=== PATIENT | male | born 1930 | race Two or more races ===

== ENCOUNTER 2019-02-14 12:15 | Emergency (ER) | payer MEDICARE, MEDICAID ==
[~2019-02-14] VITALS: Ht 167.6 cm; Wt 77.1 kg
[2019-02-14 12:15] VITALS: BP 153/70
--- NOTE | 2019-02-14 12:32 | Emergency Room Report ---
History of Present Illness General Chief Complaint: Earache Source: Patient, EMS Present Illness HPI Patient is an 88-year-old male presents after approximately 5 days of increased left-sided earache. He reports having sharp pain as well as decreased hearing to the left ear. He denies any discharge. Not been vomiting. Denies any other locations of pain. Reports having decreased hearing. Patient reports having put something into his left ear. Denies any fever. Reports having moderate pain to the area. Allergies: Coded Allergies: No Known Allergies (Unverified , 02/14/19) Patient History Past Medical History: see triage record Reviewed Nursing Documentation: PMH: Agreed; PSxH: Agreed Review of Systems All Other Systems: negative except mentioned in HPI Physical Exam Vital Signs Date Time Temp Pulse Resp B/P (MAP) Pulse Ox O2 Delivery O2 Flow Rate FiO2 02/14/19 12:14 98.8 78 18 153/70 (97) 93 Room Air Sp02 EP Interpretation: reviewed, normal General Appearance: normal inspection, well appearing, no apparent distress, alert, GCS 15 Head: atraumatic ENT: normal voice, other - decreased hearing, left ear canal swelling and tragal tenderness Neck: normal inspection, full range of motion, supple, no bony tend Respiratory: normal inspection, lungs clear, normal breath sounds, no respiratory distress, no retraction, no wheezing Cardiovascular #1: regular rate, rhythm, no edema, edema - 2+edema Gastrointestinal: normal inspection, normal bowel sounds, non tender, soft, no guarding, no hernia Genitourinary: no CVA tenderness Musculoskeletal: normal inspection, back normal, normal range of motion Neurologic: alert, motor strength/tone normal, sampler ovens III-XII nml as tested, oriented x3, responsive, speech normal, normal inspection Psychiatric: normal inspection, judgement/insight normal, mood/affect normal Medical Decision Making Diagnostic Impression: Primary Impression: Otitis externa Additional Impression: Perforated tympanic membrane ER Course Patient presented for increased left-sided ear pain. Differential diagnosis includes not limited to perforated eardrum, otitis externa, mastoiditis among others. Patient was noted to have some left-sided ear canal swelling. The right ear appears to be normal. CT imaging was ordered. 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 See radiology report for full details. He was given prescription for oral antibiotics. Patient was discussed with Dr. Ambrosio. He will be transferred back to his SNF. Patient is to follow-up with ENT as an outpatient Last Vital Signs Date Time Temp Pulse Resp B/P (MAP) Pulse Ox O2 Delivery O2 Flow Rate FiO2 02/14/19 12:15 98.8 78 18 153/70 93 Room Air Status: improved Disposition: HOME, SELF-CARE Condition: Stable Scripts Amoxicillin* (AMOXIL*) 500 Mg Capsule 500 MG ORAL THREE TIMES A DAY, #21 CAP Prov: Vini Walton MD 02/14/19 Vini Walton MD Feb 14, 2019 12:32
[2019-02-14] MEDS ORDERED: ZOFRAN4 M3 ORAL (12:34)
[2019-02-14] MEDS ORDERED: DOCUSIL100 M1 ORAL (12:34)
[2019-02-14] MEDS ORDERED: ACETAMINOPHEN325 M1 ORAL (12:34)
[2019-02-14] MEDS ORDERED: MILK OF MA2400 MG/10 ORAL (12:34)
[2019-02-14] MEDS ORDERED: MELATONIN3 M1 ORAL (12:34)
[2019-02-14] MEDS ORDERED: OXYCODONE HCL10 MG ORAL (12:34)
[2019-02-14] MEDS ORDERED: GABAPENTIN300 MG ORAL (12:34)
[2019-02-14] MEDS ORDERED: AMOXICILLIN500 MG ORAL (13:41)
--- NOTE | 2019-02-14 13:58 | Diagnostic Imaging Report ---
Indications: Left ear and head pain Technique: Spiral acquisitions obtained through the brain. Angled axial and coronal 5 x 5 mm slices were reconstructed. Total dose length product 1332 mGycm. CTDI vol(s) 62 mGy. Dose reduction achieved using automated exposure control Comparison: None. Findings: There is age-related enlargement of the ventricles and extra axial CSF spaces. Cerebellar volume loss appears somewhat asymmetric on the left There is low-attenuation in the anterior limb of the right internal capsule as well as the anterior right lentiform nucleus. There is a smaller focus of low-attenuation in the anterior limb of the left internal capsule. There is periventricular deep white matter low-attenuation. The calvarium is intact. There is some chronic sclerosis of the right mastoids. No acute mastoid effusion demonstrated. The sinuses are clear. The orbits demonstrate evidence of prior bilateral cataract surgery. 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
[2019-02-14 17:00] VITALS: BP 160/80
== END 2019-02-14 17:02 | disposition home or self-care (01) ==
LOC: EDBD 12:15 → EMR 14:00
DX: H60.92 Unspecified otitis externa, left ear (principal); H72.92 Unspecified perforation of tympanic membrane, left ear
CPT/HCPCS: 70450; 99284

== ENCOUNTER 2020-02-22 10:53 | Inpatient (IN) | payer MEDICARE, OTHER ==
[~2020-02-22] VITALS: Ht 177.8 cm; Wt 80.7 kg
[2020-02-22 10:53] VITALS: BP 143/90
[~2020-02-22 10:53] MED LIST: ACETAMINOPHEN325 M1 ORAL; AMOXICILLIN500 MG ORAL; DOCUSIL100 M1 ORAL; GABAPENTIN300 MG ORAL; MELATONIN3 M1 ORAL; MILK OF MA2400 MG/10 ORAL; OXYCODONE HCL10 MG ORAL; ZOFRAN4 M3 ORAL
--- NOTE | 2020-02-22 10:53 | NUR ---
ED Nurse Note: Pt BIBA RA11 from [facility] c/o SOB x couple mins ago. Per EMS, pt was dessatingn at 86% RA, placed on 15L NRB, O2 improved to 96%. Pt was tested positive last 02/11/20. Pt is warm to touch, tachypneic 40s and tachycardic 110s upon arrival. AAOx4, verbally responsive. Pt is restless. Noted with shallow breathing. Isolation precaution is in place. Pt placed on night monitor.
[2020-02-22] MEDS ORDERED: Azithromycin 500 MG in NS 275 ML IVPB ONE (11:15)
[2020-02-22] MEDS ORDERED: dexAMETHasone 10mg/ml Inj IV ONE (11:15)
[2020-02-22] MEDS ORDERED: cefTRIAXone 1 GM in NS 55 ML IV ONE (11:15)
--- NOTE | 2020-02-22 11:36 | NUR ---
ED Nurse Note: Xray at bedside.
[2020-02-22 12:00] VITALS: BP 135/78
[2020-02-22 12:06] LABS: BASOPHILS % (AUTO) 0.4 % (0.0-2.0); EOSINOPHILS % (AUTO) 0.1 % (0.0-3.0); HEMOGLOBIN 13.9 G/DL (14.2-18.0); LYMPHOCYTES % (AUTO) 9.9 % (20.0-45.0); MEAN CORPUSCULAR VOLUME 77 FL (80-99); MONOCYTES % (AUTO) 14.1 % (1.0-10.0); NEUTROPHILS % (AUTO) 75.5 % (45.0-75.0); PLATELET COUNT 356 K/UL (150-450); RED BLOOD COUNT 5.29 M/UL (4.70-6.10); RED CELL DISTRIBUTION WIDTH 13.8 % (11.6-14.8); WHITE BLOOD COUNT 5.8 K/UL (4.8-10.8)
[2020-02-22 12:23] LABS: ANION GAP 11 mmol/L (5-15); BLOOD UREA NITROGEN 31 mg/dL (7-18); CALCIUM 8.5 MG/DL (8.5-10.1); CARBON DIOXIDE 26 MMOL/L (21-32); CHLORIDE 103 MMOL/L (98-107); CREATININE 1.6 MG/DL (0.55-1.30); POTASSIUM 3.6 MMOL/L (3.5-5.1); SODIUM 140 MMOL/L (136-145)
[2020-02-22 12:26] LABS: INR 1.3 (0.9-1.1)
[2020-02-22 12:38] LABS: ALANINE AMINOTRANSFERASE 48 U/L (12-78); ALBUMIN 2.4 G/DL (3.4-5.0); ALBUMIN/GLOBULIN RATIO 0.4 (1.0-2.7); ALKALINE PHOSPHATASE 70 U/L (46-116); ASPARTATE AMINO TRANSFERASE 55 U/L (15-37); BILIRUBIN,TOTAL 0.8 MG/DL (0.2-1.0); CREATINE KINASE 388 U/L (26-308); FERRITIN 452 NG/ML (8-388); LACTATE DEHYDROGENASE 444 U/L (81-234); PHOSPHORUS 1.9 MG/DL (2.5-4.9)
--- NOTE | 2020-02-22 13:07 | Diagnostic Imaging Report ---
Indication: Cough Technique: One view of the chest Comparison: none Findings: Bilateral mid and lower lung infiltrates versus edema are demonstrated. The heart is enlarged. Impression: Cardiomegaly. Bilateral infiltrates versus edema
--- NOTE | 2020-02-22 13:27 | Emergency Room Report ---
History of Present Illness General Chief Complaint: Dyspnea/Respdistress Source: Patient Present Illness HPI 89-year-old male brought in by ambulance with hypoxia. Patient was hypoxic on EMS arrival therefore he was placed on 15 L facemask with correction of hypoxia to SPO2 95%. History is limited secondary to patient's clinical status. He is full code The patient's symptoms were gradual onset, severity was moderate, duration since several days Quality: Generally weak, short of breath Past medical history: Denies Past surgical history: Denies Smoking: Denies Alcohol use: Denies Drug use: Denies Review of systems: CONST: Positive fevers or chills, No night sweats PULMONARY: N positive o productive cough, positive shortness of breath CARDIAC: No chest pain, No palpitations GI: No vomiting, No diarrhea , No melena_or_BRBPR : No dysuria, No hematuria, No discharge NEURO: No new_focal_weakness_or_numbness, No confusion, No vision changes 14 point Review of Systems is otherwise negative except per HPI Physical Exam: GENERAL: Awake_alert_ nontoxic, no acute distress Spo2 70% on RA -abnormal. Increased work of breathing. Febrile. Chronically ill-appearing EYES: Extraocular muscles are intact. Conjunctivae clear. Lids without swelling ENT: External nose and ear normal_in_appearance. Oropharynx clear. Head_atraumatic, dry_oral_mucosa NECK: No JVD. No meningismus. No thyromegaly. Supple. Trachea midline RESP: Increased respiratory effort. Coarse breath sounds bilaterally. Subcostal retractions. CARDIAC: Tachycardic. And regular rhytm. No_significant pedal edema. ABDOMEN: Soft. Nondistended. Nontender_No_rebound_or_guarding. MSK: Normal muscle tone, without rigidity. Extremities without asymmetric deformity or swelling. SKIN: Warm and dry. No visible cyanosis or pallor NEUROLOGIC: Alert, oriented x 2. Motor_and_sensation_grossly_intact. No truncal ataxia. Gait_normal Psych: Normal mood and affect, normal judgment and insight - COORDINATION OF CARE Case was discussed with: Patient Any labs and imaging that were ordered were interpreted as part of the medical decision making: Medical Decision Making/Plan: Differential includes COVID 19, pneumonia, bronchitis, CHF, pulmonary edema, pulmonary embolism, pleural effusion among others. Patient is febrile, tachycardic, and hypoxic. He was found to be Covid positive. He was placed on 15 L facemask with correction of hypoxia. ABG is pending. Symptoms are not likely to be pulmonary embolism, patient no significant PE risk factors, and has more likely alternate cause of symptoms. CXR shows multifocal pneumonia. Seems to be consistent with COVID pneumonia, rather than CHF. Labs show elevated lactic acid, elevated LDH, CRP, and ferritin. No significant leukocytosis or bandemia Presentation not consistent with ischemia / ACS. EKG shows sinus tachycardia without acute ischemia. Based on the patients PSI/PORT score, has high enough mortality risk that inpatient admission for IV antibiotics and clinical observation is most appropriate. Patient given Ceftriaxone / Azithromycin. Decadron given. I spoke with Dr. Lam, and reviewed the patients presentation, workup, results, and treatment. They will admit the patient for further care and evaluation, and assume care of the patient at this time. - CRITICAL CARE TIME - I spent 60minutes of critical care time. This time excludes any separately billable procedures. Organ systems at risk include: Pulmonary / respiratory Treatments/Evaluations: Emergent and rapid respiratory assessment and management with continuous monitoring. Advanced airway equipment at the ready, while the patient's respiratory symptoms were stabilized. Given the patients presentation with pneumonia with hypoxic respiratory failure, there existed the potential for imminent deterioration in the patient's condition due to respiratory compromise. Organ systems at risk for failure without immediate intervention include pulmonary / respiratory. This time was spent reviewing the patients records, reviewing vital signs, reassessing the patients clinical status, discussing the case and care with staff and consultants, and performing high-complexity medical decision making. I considered the possibility of Bipap vs intubation , but at this time the patient is protecting their airway and maintaining their saturation on supplemental oxygen so will defer intubation at this time, although they will be closely monitored for any further deterioration. 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 Rhythm: Sinus tachycardia Rate: 108 bpm QTc: 511 Morphology: No_significant_ST_elevations_or_depressions, No STEMI Impression: Sinus tachycardia, nonspecific ST changes Chest X-Ray Diagnostic Results Chest X-Ray Diagnostic Results : LINDA Virgen Chest X-Ray: Views: [ 1 ] view(s) Indication: Shortness of breath Findings: Normal heart size. Mediastinum normal. Bilateral infiltrate. Impression: Bilateral infiltrate The X-ray(s) were independently viewed and interpreted contemporaneously Electronically signed by Francia redman DO Reevaluation Time: 13:27 Last Vital Signs Date Time Temp Pulse Resp B/P (MAP) Pulse Ox O2 Delivery O2 Flow Rate FiO2 02/22/20 10:53 97.5 110 20 143/90 95 Non-Rebreather 15.0 Status: improved Disposition: ADMITTED INPATIENT Admit Decision Time: 13:00 Condition: Stable Referrals: Yumi Lam MD (PCP) Francia Singh D.O. Feb 22, 2020 13:27
--- NOTE | 2020-02-22 14:09 | NUR ---
ED Nurse Note: Pt unable to provide urine at this time.
[2020-02-22 14:18] VITALS: BP 131/75
[2020-02-22] MEDS ORDERED: Albuterol 90mcg Inhaler 8gm INH PRN (15:15)
[2020-02-22 16:15] VITALS: BP 134/78
[2020-02-22] MEDS ORDERED: Enoxaparin 30mg Inj SUBQ SCH (16:15)
[2020-02-22] MEDS ORDERED: Albuterol/Ipratropium 3ml neb HHN PRN (16:15)
--- NOTE | 2020-02-22 16:15 | History and Physical Report ---
DATE OF ADMISSION: 02/22/2020 CHIEF COMPLAINT: Shortness of breath. HISTORY OF PRESENT ILLNESS: This is an 89-year-old male from [facility]. I was notified earlier by the nursing staff about sending the patient to the ED for evaluation. The patient has been complaining of weakness and shortness of breath. 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 The patient has been identified as positive COVID-19 for the last several weeks. PAST MEDICAL HISTORY: 1. Organic brain syndrome. 2. Benign prostatic hypertrophy. 3. Gout. 4. Low back pain. 5. Osteoporosis. 6. Hypertensive cardiovascular disease. 7. Recurrent urinary tract infections. CURRENT MEDICATIONS: Tylenol as needed, Neurontin, melatonin, Zofran as needed, oxycodone, milk of magnesia, Pro-Stat liquid, multivitamins, tamsulosin, and vitamin D. ALLERGIES: No known drug allergies. FAMILY HISTORY: Unable to obtain due to his mental status. SOCIAL HISTORY: Unable to obtain due to his mental status. REVIEW OF SYSTEMS: Unable to obtain due to his mental status. PHYSICAL EXAMINATION: GENERAL: This is an elderly male, who is in no acute distress. VITAL SIGNS: Blood pressure 143/90, pulse 110, sinus tachycardia, and temperature 97.5. O2 saturation 95% on a non-rebreather mask at 15 liters/minute. HEENT: The head is normocephalic and atraumatic. Pupils are equal, round, and reactive to light. NECK: Supple. Trachea midline. There was no lymphadenopathy or thyromegaly. LUNGS: Bilateral rhonchi and wheezes. HEART: Tachycardia. S1 and S2. No rubs, murmurs, or gallops. ABDOMEN: Soft and nontender. Bowel sounds were active. EXTREMITIES: No clubbing, cyanosis, or edema. NEUROLOGICAL: He is alert, but confused. There were no gross focal findings. LABORATORY AND ANCILLARY DATA: CBC within normal limits. Chemistry - BUN 31, creatinine 1.6, phosphorus 1.9. LDH 444. CPK 388. Lactic acid 2.6. Albumin 2.4. ABG - pH 7.52, pCO2 28, pO2 70.9. Bicarbonate 22.4. Chest x-ray, bilateral infiltrates. CT scan of the head done on 02/15/2020 No acute disease. ASSESSMENT: 1. Bilateral COVID-19 pneumonia. 2. Volume depletion. 3. Malnutrition. PLAN: 1. Admit to step-down unit. 2. High-flow oxygen. 3. Pulmonary and ID consults. 4. Nutritional support. Yumi Lam M.D. DR: BISHOP JOB#: [id number] CC: LARA
[2020-02-22] MEDS ORDERED: PRO-STAT LIQUID30 ML ORAL (16:26)
[2020-02-22] MEDS ORDERED: [UNRECOGNIZED DRUG - OTHER] PO (16:26)
[2020-02-22] MEDS ORDERED: FLOMAX0.4 MG ORAL (16:26)
[2020-02-22] MEDS: Enoxaparin 40mg Inj SUBQ SCH (18:00)
[2020-02-22 18:24] VITALS: BP 144/77
[2020-02-22 19:30] VITALS: BP 134/73
--- NOTE | 2020-02-22 19:30 | NUR ---
ED Nurse Note: patient resting in bed with no acute distress. vitals stable to baseline. nrb 15L in place. patient tolerating well. discussed plan of care; aware of pending admission
--- NOTE | 2020-02-22 19:45 | NUR ---
ED Nurse Note: report given to nathan vega. patient to be admitted to [facility] under the care of loretta rosenbaum.
--- NOTE | 2020-02-22 20:10 | NUR ---
TRANSFER TO FLOOR: Patient transferred to [facility] as ordered, per loretta rosenbaum. Report given to nathan vega. patient stable for transport. transferred to unit via gurney with sheree and rn. belongings and admission packet sent with patient.
--- NOTE | 2020-02-22 20:45 | NUR ---
NURSE NOTES: Received patient from ER under the care of Dr. Mcmahan for the admitting dx of respiratory distress. Patient noted NKA and full code status. Patient on droplet/airborne isolation and fall risk precaution observed and maintained at all times. Patient is alert with periods of confusion. Able to speak and understand Maori and some Ecuadorean Tolerating O2 therapy (15lpm via Non-rebreather mask) well. No apparent distress or discomfort noted at this time. Will continue to monitor.
--- NOTE | 2020-02-22 21:05 | Pulmonology Progress Note ---
Subjective ROS Limited/Unobtainable: Yes Allergies: Coded Allergies: No Known Allergies (Unverified , 02/14/19) Objective Last 24 Hour Vital Signs Date Time Temp Pulse Resp B/P (MAP) Pulse Ox O2 Delivery O2 Flow Rate FiO2 02/22/20 18:24 98.6 85 16 144/77 100 Non-Rebreather 15.0 02/22/20 16:15 98.6 86 21 134/78 95 Non-Rebreather 15.0 02/22/20 14:18 98.6 82 27 131/75 99 Non-Rebreather 15.0 02/22/20 12:00 97.5 102 25 135/78 96 Non-Rebreather 15.0 02/22/20 10:53 97.5 110 41 143/90 95 Non-Rebreather 15.0 02/22/20 10:53 110 41 Non-Rebreather 15.0 02/22/20 10:48 97.5 110 20 143/90 (107) 95 Non-Rebreather 15.0 Microbiology Date/Time Source Procedure Growth Status 02/22/20 12:05 Rectum Received 02/22/20 12:05 Nasal Nares - Final Complete 02/22/20 12:05 Nasal Nares - Final Complete 02/22/20 11:25 Nasopharynx SARS-CoV-2 RdRp Gene Assay - Final Complete Laboratory Tests 02/22/20 11:25: White Blood Count 5.8, Red Blood Count 5.29, Hemoglobin 13.9L, Hematocrit 41.0L, Mean Corpuscular Volume 77L, Mean Corpuscular Hemoglobin 26.4L, Mean Corpuscular Hemoglobin Concent 34.0, Red Cell Distribution Width 13.8, Platelet Count 356, Mean Platelet Volume 6.9, Neutrophils (%) (Auto) 75.5H, Lymphocytes (%) (Auto) 9.9L, Monocytes (%) (Auto) 14.1H, Eosinophils (%) (Auto) 0.1, Basophils (%) (Auto) 0.4, Prothrombin Time 14.0H, Prothromb Time International Ratio 1.3H, Activated Partial Thromboplast Time 21L, D-Dimer 2.97H, Sodium Level 140, Potassium Level 3.6, Chloride Level 103, Carbon Dioxide Level 26, Anion Gap 11, Blood Urea Nitrogen 31H, Creatinine 1.6H, Estimat Glomerular Filtration Rate 40.9, Glucose Level 121H, Lactic Acid Level 2.60H, Calcium Level 8.5, Phosphorus Level 1.9L, Magnesium Level 2.2, Ferritin 452H, Total Bilirubin 0.8, Aspartate Amino Transf (AST/SGOT) 55H, Alanine Aminotransferase (ALT/SGPT) 48, Alkaline Phosphatase 70, Lactate Dehydrogenase 444H, Total Creatine Kinase 388H, Troponin I 0.014, C-Reactive Protein, Quantitative 17.1H, Pro-B-Type Natriuretic Peptide 538H, Total Protein 7.9, Albumin 2.4L, Globulin 5.5, Albumin/Globulin Ratio 0.4L , Lipase 88 02/22/20 11:54: Arterial Blood pH 7.521H, Arterial Blood Partial Pressure CO2 28.0L, Arterial Blood Partial Pressure O2 70.9L, Arterial Blood HCO3 22.4, Arterial Blood Oxygen Saturation 95.0, Arterial Blood Base Excess 0.8, Home Test Positive 02/22/20 13:03: Lactic Acid Level 1.80 02/22/20 17:33: Arterial Blood pH 7.512H, Arterial Blood Partial Pressure CO2 28.2L, Arterial Blood Partial Pressure O2 54.9L, Arterial Blood HCO3 22.1, Arterial Blood Oxygen Saturation 89.0*L, Arterial Blood Base Excess 0.3, Home Test Positive Current Medications Medications (Trade) Dose Ordered Sig/Gabi Route PRN Reason Start Time Stop Time Status Last Admin Dose Admin Acetaminophen (Tylenol) 650 mg Q4H PRN ORAL Mild Pain (Pain Scale 1-3) 02/22/20 16:15 03/23/20 16:14 Acetaminophen (Tylenol) 650 mg Q4H PRN ORAL Temp >100.5 02/22/20 16:15 03/23/20 16:14 Albuterol Sulfate (Proventil MDI) 2 puff Q4H PRN INH Shortness of Breath 02/22/20 15:15 05/22/20 15:14 Docusate Sodium (Colace) 100 mg EVERY 12 HOURS ORAL 02/22/20 21:00 03/23/20 20:59 Enoxaparin Sodium (Lovenox) 40 mg Q24H SUBQ 02/22/20 18:00 05/22/20 17:59 Ondansetron HCl (Zofran) 4 mg Q6H PRN IVP Nausea & Vomiting 02/22/20 16:15 03/23/20 16:14 Pantoprazole (Protonix) 40 mg DAILY ORAL 02/23/20 09:00 03/24/20 08:59 Sodium Chloride 1,000 ml @ 100 mls/hr Q10H IV 02/22/20 18:00 03/23/20 17:59 Assessment/Plan Assessment/Plan Pulmonary Consultation HPI: 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 Has been positive for Covid19 for several weeks Past Medical History: Organic brain syndrome Hypertensive cardiovascular disease Benign prostatic hypertrophy Gout Low back pain Osteoporosis Recurrent urinary tract infections Medications noted Allergies: No known drug allergies. FH: NA SH: NA ROS: NA Objective: Vital signs noted PE: GENERAL: This is an elderly male, who is in no acute distress. HEENT: The head is normocephalic and atraumatic. Pupils are equal, round, and reactive to light. NECK: Trachea midline. There was no lymphadenopathy or thyromegaly. LUNGS: Bilateral rhonchi and wheezes. HEART: Tachycardia. S1 and S2. No rubs, murmurs, or gallops. ABDOMEN: Soft and nontender. Bowel sounds were active. EXTREMITIES: No clubbing, cyanosis, or edema. NEUROLOGICAL: He is alert, but confused. There were no gross focal findings. Per report,deferred Covid 19 Laboratory noted Chest x-ray: bilateral infiltrates. 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
[2020-02-22] MEDS: Docusate 100mg cap ORAL SCH (21:37)
[2020-02-23] VITALS: BP 136/87
--- NOTE | 2020-02-23 | NUR ---
NURSE NOTES: Patient noted with periods of confusion. Patient able to verbalize his name and follow simple instructions. Tolerating O2 settings well. Will continue to monitor.
--- NOTE | 2020-02-23 03:00 | NUR ---
NURSE NOTES: New IV site started on patient. Noted to be patent and flushing well, no sign of infiltration noted. Will continue to monitor.
[2020-02-23 04:00] VITALS: BP 145/75
--- NOTE | 2020-02-23 06:00 | NUR ---
NURSE NOTES: Patient insisting on going to bathroom, reorientation provided but patients insists. Assisted to bedside comode. Pericare performed. Will continue to monitor.
[2020-02-23 06:05] LABS: CALCIUM 8.4 MG/DL (8.5-10.1); CREATININE 1.2 MG/DL (0.55-1.30); POTASSIUM 3.2 MMOL/L (3.5-5.1)
[2020-02-23 07:02] LABS: BASOPHILS % (AUTO) 0.2 % (0.0-2.0); HEMATOCRIT 40.8 % (42.0-52.0); HEMOGLOBIN 13.5 G/DL (14.2-18.0); LYMPHOCYTES % (AUTO) 8.6 % (20.0-45.0); MEAN CORPUSCULAR VOLUME 82 FL (80-99); MONOCYTES % (AUTO) 8.8 % (1.0-10.0); NEUTROPHILS % (AUTO) 82.3 % (45.0-75.0); PLATELET COUNT 335 K/UL (150-450); RED BLOOD COUNT 4.99 M/UL (4.70-6.10); RED CELL DISTRIBUTION WIDTH 13.2 % (11.6-14.8)
--- NOTE | 2020-02-23 07:10 | NUR ---
NURSE HAND-OFF REPORT: Important Events on Shift:Admitted to unit. Patient Status: Stable Diet: Regular Pending Orders: Pending Results/Labs: Pending MD notification: Latest Vital Signs: Temperature 97.2 , Pulse 83 , B/P 145 /75 , Respiratory Rate 22 , O2 SAT 93 , Non-Rebreather, O2 Flow Rate 15.0 . Vital Sign Comment: WNL EKG Rhythm: Sinus Rhythm Rhythm change?: N MD Notified?: - MD Response: Latest Myers Fall Score: 35 Fall Risk: Medium Risk Safety Measures: Call light , Bed Alarm Zone 1, Side Rails Side Rails x3, Bed position Low and Locked. Fall Precautions: Yellow Socks Yellow Gown Patient Fall Education Report given to PIERCE Damon.
--- NOTE | 2020-02-23 07:50 | NUR ---
NURSE NOTES:handoff received from PIERCE Valenzuela. Patient received awake and alert and resting in bed, patient is on non-rebreather at 15L saturating at 96% no acute signs of distress noted. Patient has right hand 20 G IV running 1/2NS@100ML, IV site is clean dry and intact. patient is on isolation for Covid,no skin issues noted. Patient assisted to the bedside commode and then placed back in bed. Patient is on patient monitor in SR, bed in the low and locked position with call light at bedside, fall precautions initiated. Will follow plan of care.
[2020-02-23 08:00] VITALS: BP 136/81
--- NOTE | 2020-02-23 08:22 | NUR ---
NURSE NOTES:Patient refused breakfast but requested a fruit plate. Called dietary to prepare and fruit plate for patient.
--- NOTE | 2020-02-23 08:58 | NUR ---
NURSE NOTES:Dr Nath notified regarding patient potassium level of 3.2 and patient complaining of left lower leg pain. Orders given for 30MEQ;s KCL IV and [place] 5/325 PO Q6H for pain.
[2020-02-23] MEDS: Docusate 100mg cap ORAL SCH ×2 (09:00→20:43)
--- NOTE | 2020-02-23 09:10 | NUR ---
NURSE NOTES:Assisted patient to bedside commode, patient urinated. Informed patient that I can assist him to use a urinal if he would like, patient states he needs to poop.
[2020-02-23] MEDS: dexAMETHasone 10mg/ml Inj IV SCH (09:45)
[2020-02-23] MEDS: HYDROcodone/Acetamin 5/325 tab ORAL PRN (11:29)
[2020-02-23 12:00] VITALS: BP 134/72
--- NOTE | 2020-02-23 12:53 | Pulmonology Progress Note ---
Subjective ROS Limited/Unobtainable: Yes Allergies: Coded Allergies: No Known Allergies (Unverified , 02/14/19) Objective Last 24 Hour Vital Signs Date Time Temp Pulse Resp B/P (MAP) Pulse Ox O2 Delivery O2 Flow Rate FiO2 02/23/20 11:55 15.0 100 02/23/20 11:53 Non-Rebreather 15.0 02/23/20 08:00 15.0 100 02/23/20 08:00 97.3 84 30 136/81 (99) 96 02/23/20 08:00 89 02/23/20 08:00 Non-Rebreather 15.0 02/23/20 04:00 15.0 100 02/23/20 04:00 97.2 83 22 145/75 (98) 93 02/23/20 04:00 78 02/23/20 04:00 Non-Rebreather 15.0 02/23/20 00:00 15.0 100 02/23/20 00:00 79 02/23/20 00:00 Non-Rebreather 15.0 02/23/20 00:00 97.0 85 22 136/87 (103) 92 02/22/20 21:14 Non-Rebreather 15.0 02/22/20 20:10 98.6 88 17 133/72 98 Non-Rebreather 15.0 02/22/20 19:30 98.6 86 14 134/73 99 Non-Rebreather 15.0 02/22/20 18:24 98.6 85 16 144/77 100 Non-Rebreather 15.0 02/22/20 16:15 98.6 86 21 134/78 95 Non-Rebreather 15.0 02/22/20 14:18 98.6 82 27 131/75 99 Non-Rebreather 15.0 Intake and Output 02/22/20 02/23/20 19:00 07:00 Intake Total 500 ml Balance 500 ml Intake Oral 500 ml # Voids 1 # Bowel Movements 1 Microbiology Date/Time Source Procedure Growth Status 02/22/20 12:05 Rectum Received 02/22/20 12:05 Nasal Nares - Final Complete 02/22/20 12:05 Nasal Nares - Final Complete 02/22/20 11:25 Nasopharynx SARS-CoV-2 RdRp Gene Assay - Final Complete Laboratory Tests 02/22/20 13:03: Lactic Acid Level 1.80 02/22/20 17:33: Arterial Blood pH 7.512H, Arterial Blood Partial Pressure CO2 28.2L, Arterial Blood Partial Pressure O2 54.9L, Arterial Blood HCO3 22.1, Arterial Blood Oxygen Saturation 89.0*L, Arterial Blood Base Excess 0.3, Home Test Positive 02/23/20 04:10: White Blood Count 9.0#, Red Blood Count 4.99, Hemoglobin 13.5L, Hematocrit 40.8L , Mean Corpuscular Volume 82, Mean Corpuscular Hemoglobin 27.0, Mean Corpuscular Hemoglobin Concent 33.0, Red Cell Distribution Width 13.2, Platelet Count 335, Mean Platelet Volume 6.6, Neutrophils (%) (Auto) 82.3H, Lymphocytes (%) (Auto) 8.6L, Monocytes (%) (Auto) 8.8, Eosinophils (%) (Auto) 0.0, Basophils (%) (Auto) 0.2, Sodium Level 142, Potassium Level 3.2L, Chloride Level 106, Carbon Dioxide Level 24, Anion Gap 12, Blood Urea Nitrogen 28H, Creatinine 1.2, Estimat Glomerular Filtration Rate 57.0, Glucose Level 128H, Calcium Level 8.4L Current Medications Medications (Trade) Dose Ordered Sig/Gabi Route PRN Reason Start Time Stop Time Status Last Admin Dose Admin Acetaminophen (Tylenol) 650 mg Q4H PRN ORAL Mild Pain (Pain Scale 1-3) 02/22/20 16:15 03/23/20 16:14 Acetaminophen (Tylenol) 650 mg Q4H PRN ORAL Temp >100.5 02/22/20 16:15 03/23/20 16:14 Acetaminophen/ Hydrocodone Bitart ([place] 5/325) 1 tab Q6H PRN ORAL pain 4-10 02/23/20 09:00 03/01/20 08:59 02/23/20 11:29 Albuterol Sulfate (Proventil MDI) 2 puff Q4H PRN INH Shortness of Breath 02/22/20 15:15 05/22/20 15:14 Dexamethasone Sodium Phosphate (Decadron 10mg/ ml Inj) 6 mg DAILY IV 02/23/20 09:00 03/02/20 09:01 12/24/20 09:45 Docusate Sodium (Colace) 100 mg EVERY 12 HOURS ORAL 02/22/20 21:00 03/23/20 20:59 02/22/20 21:37 Enoxaparin Sodium (Lovenox) 40 mg Q24H SUBQ 02/22/20 18:00 05/22/20 17:59 Ondansetron HCl (Zofran) 4 mg Q6H PRN IVP Nausea & Vomiting 02/22/20 16:15 03/23/20 16:14 Pantoprazole (Protonix) 40 mg DAILY ORAL 02/23/20 09:00 03/24/20 08:59 02/23/20 09:47 Sodium Chloride 1,000 ml @ 100 mls/hr Q10H IV 02/22/20 18:00 03/23/20 17:59 02/23/20 03:57 Assessment/Plan Assessment/Plan Pulmonary Progress Note HPI: Patient is an 89-year-old man, Senior Living Resident admitted with Covid 19 Pneumonia,had been noted tohave weakness and shortness of breath. Has been positive for Covid19 for several weeks Past Medical History: Organic brain syndrome Hypertensive cardiovascular disease Benign prostatic hypertrophy Gout Low back pain Osteoporosis Recurrent urinary tract infections Medications noted Allergies: No known drug allergies. Remains on HFNB Objective: Vital signs noted PE: Deferred Covid 19 Laboratory noted Chest x-ray: bilateral infiltrates. 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
--- NOTE | 2020-02-23 13:49 | General Progress Note ---
Subjective Allergies: Coded Allergies: No Known Allergies (Unverified , 02/14/19) Subjective c/o muscle cramps Objective Last 24 Hour Vital Signs Date Time Temp Pulse Resp B/P (MAP) Pulse Ox O2 Delivery O2 Flow Rate FiO2 02/23/20 12:00 96.8 80 24 134/72 (92) 98 02/23/20 11:55 15.0 100 02/23/20 11:53 Non-Rebreather 15.0 02/23/20 08:00 15.0 100 02/23/20 08:00 97.3 84 30 136/81 (99) 96 02/23/20 08:00 89 02/23/20 08:00 Non-Rebreather 15.0 02/23/20 04:00 15.0 100 02/23/20 04:00 97.2 83 22 145/75 (98) 93 02/23/20 04:00 78 02/23/20 04:00 Non-Rebreather 15.0 02/23/20 00:00 15.0 100 02/23/20 00:00 79 02/23/20 00:00 Non-Rebreather 15.0 02/23/20 00:00 97.0 85 22 136/87 (103) 92 02/22/20 21:14 Non-Rebreather 15.0 02/22/20 20:10 98.6 88 17 133/72 98 Non-Rebreather 15.0 02/22/20 19:30 98.6 86 14 134/73 99 Non-Rebreather 15.0 02/22/20 18:24 98.6 85 16 144/77 100 Non-Rebreather 15.0 02/22/20 16:15 98.6 86 21 134/78 95 Non-Rebreather 15.0 02/22/20 14:18 98.6 82 27 131/75 99 Non-Rebreather 15.0 Intake and Output 0 02/22/20 02/23/20 19:00 07:00 Intake Total 500 ml Balance 500 ml Intake Oral 500 ml # Voids 1 # Bowel Movements 1 Laboratory Tests 02/22/20 17:33: Arterial Blood pH 7.512H, Arterial Blood Partial Pressure CO2 28.2L, Arterial Blood Partial Pressure O2 54.9L, Arterial Blood HCO3 22.1, Arterial Blood Oxygen Saturation 89.0*L, Arterial Blood Base Excess 0.3, Home Test Positive 02/23/20 04:10: White Blood Count 9.0#, Red Blood Count 4.99, Hemoglobin 13.5L, Hematocrit 40.8L , Mean Corpuscular Volume 82, Mean Corpuscular Hemoglobin 27.0, Mean Corpuscular Hemoglobin Concent 33.0, Red Cell Distribution Width 13.2, Platelet Count 335, Mean Platelet Volume 6.6, Neutrophils (%) (Auto) 82.3H, Lymphocytes (%) (Auto) 8.6L, Monocytes (%) (Auto) 8.8, Eosinophils (%) (Auto) 0.0, Basophils (%) (Auto) 0.2, Sodium Level 142, Potassium Level 3.2L, Chloride Level 106, Carbon Dioxide Level 24, Anion Gap 12, Blood Urea Nitrogen 28H, Creatinine 1.2, Estimat Glomerular Filtration Rate 57.0, Glucose Level 128H, Calcium Level 8.4L Height (Feet): 5 Height (Inches): 10.00 Weight (Pounds): 178 Objective CV RR Lungs CTA Abd SNT BS + E No CCE Assessment/Plan Assessment/Plan: Covid 19 - per ID Volume depletion -IVF. Yumi Lam MD Feb 23, 2020 13:49
--- NOTE | 2020-02-23 14:07 | NUR ---
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 COVID (+), SOB SI: COVID-19 PNA, hypoxic Resp failure, Dehydration, m temp 97.5, HR-110, RR 41, BP 143/90, O2 sat 86% Cxray bilateral infiltrates WBC increased from 5.8 to 9.0 5 hrs, K+ 3.2 ABG pH 7.512, pO2 70.9, pCO2 28, ABG saturation 89% BUN 31, Creatinine 1.6, Lactic acid 2.6 IS: O2 15L NRB KCL IV Dexamethasone Rocephin IV Azithromycin IV admit to SDU CAR Tele DCP: pending hospital stay
--- NOTE | 2020-02-23 14:22 | NUR ---
NURSE NOTES:Assisted patient to bedside commode, patient able to transfer with assist to and from bed to commode.
--- NOTE | 2020-02-23 15:00 | Consultation ---
DATE OF CONSULTATION: 02/23/2020 INFECTIOUS DISEASE CONSULTATION This consult is for coverage of Dr. Saucedo. CONSULTING PHYSICIAN: Pancho Lr MD PRIMARY ATTENDING: Yumi Lam MD REASON FOR CONSULTATION: COVID-19 disease. HISTORY OF PRESENT ILLNESS: This is an 89-year-old male [facility] because of shortness of breath. He was hypoxemic. He had positive COVID test since 02/11/2020. Confused and is not a source of history. PAST MEDICAL HISTORY: Gout, osteoporosis, hypertension, organic brain syndrome, spinal stenosis, dysphagia. ALLERGIES: No known drug allergies. MEDICATIONS: Getting Warren, dexamethasone, Colace, enoxaparin, Zofran, Tylenol, albuterol. SOCIAL HISTORY: retirement resident. Single. No other history obtainable. PHYSICAL EXAMINATION: VITAL SIGNS: Temperature 97.3, pulse 84, blood pressure 136/81. GENERAL APPEARANCE: Seems to have normal weight. HEAD AND NECK: Getting oxygen by nonrebreathing mask 15 L per minute. HEART: Normal rate. LUNGS: Clear. ABDOMEN: Soft, nontender. EXTREMITIES: No edema. LABORATORY AND DIAGNOSTIC DATA: WBC 9000, hemoglobin 13.5, hematocrit 40.8, platelets 335. Sodium 142, potassium 4.2, chloride 106, bicarb 24, BUN 28, creatinine 1.2, creatinine at the time of admission was 1.6, glucose is 128. Lactic acid at the time of admission was slightly high 2.6, came back to normal limits. LDH is high 444. Influenza A and B tests were negative. ABG showed pO2 of 54, pCO2 of 28.2, pH of 7.512, O2 saturation of 89. Chest x-ray showed cardiomegaly, bilateral infiltrates versus edema. IMPRESSION: COVID-19 pneumonia. Has hypoxemic respiratory failure. Have lymphocytopenia, lactic acidosis, acute renal failure, hypertension, osteoporosis, spinal stenosis. RECOMMENDATION: Continue dexamethasone. Case was discussed with the pharmacy because patient has the 10 days window for starting of remdesivir, patient likely will not be eligible for remdesivir. At the end of my exam, I thank Dr. Ambrosio for involving me in the care of this patient. Pancho Lr M.D. DR: DIGNA JOB#: [id number] CC: LARA
[2020-02-23 16:00] VITALS: BP 130/74
--- NOTE | 2020-02-23 18:54 | NUR ---
NURSE NOTES:Assisted patient to Commode to urinate, noticed Left AC IV is taped to patient arm but is no longer in place. Put Kerlix on the left hand IV site to prevent IV from coming dislodged.
[2020-02-23] MEDS: Enoxaparin 40mg Inj SUBQ SCH (18:57)
--- NOTE | 2020-02-23 19:25 | NUR ---
NURSE NOTES: Received report from David Damon. Pt in bed, awake, alert but confused. Verbally responsive, luxembourgish speaking and able to make needs known. Keep trying to get out of bed, reminded pt to use call light every time he needs something. On non rebreather saturating 93%. Iv access on r hand # 22 runnihng 1/2 ns @ 100cc.hr, no signs of infiltration noted. Iv line is intact, patent and flushed well. Safety measures in place, bed in lowest positioned locked, bed alarm on. Call light within reached. Will continue plan of care and monitor the pt.
--- NOTE | 2020-02-23 19:31 | NUR ---
NURSE HAND-OFF REPORT: Important Events on Shift:Patient confused and removing non-rebreather, needs reinforcement to leave mask on. Patient Status: Stable Diet: Regular soft easy chew Pending Orders: Pending Results/Labs: Pending MD notification: Latest Vital Signs: Temperature 98.1 , Pulse 78 , B/P 130 /74 , Respiratory Rate 26 , O2 SAT 97 , Non-Rebreather, O2 Flow Rate 15.0 . Vital Sign Comment: EKG Rhythm: Sinus Rhythm Rhythm change?: N MD Notified?: - MD Response: Latest Myers Fall Score: 45 Fall Risk: High Risk Safety Measures: Call light , Bed Alarm Zone 1, Side Rails Side Rails x3, Bed position Low and Locked. Fall Precautions: Yellow Socks Patient Fall Education Report given to PIERCE Song.
[2020-02-23 20:00] VITALS: BP 141/76
--- NOTE | 2020-02-23 20:54 | NUR ---
NURSE NOTES: Notified Dr Bailey that pt is very agitated and confused, kep trying to get out of bed and tried to pull out iv access. Awaiting call back
--- NOTE | 2020-02-23 21:15 | NUR ---
NURSE NOTES: Received a call back from Dr Bridges and ordered to give Ativan 1 mg q6hr prn agitation and ok to put restraints
[2020-02-23] MEDS: LORazepam Inj 2mg/ml 1ml IV PRN (21:39)
--- NOTE | 2020-02-23 21:39 | NUR ---
NURSE NOTES: Administered Ativan 1mg as per Dr Esposito order for agitation. Will continue to monitor pt .
[2020-02-24] VITALS: BP 142/71
--- NOTE | 2020-02-24 00:10 | NUR ---
NURSE NOTES: Pt is still awake, soft bilateral wrist restraints is in place. Verbally responsive and able to make needs known. Provided hydration as per request. Still restless and tries to remove restraints. Will continue to monitor.
--- NOTE | 2020-02-24 03:20 | NUR ---
NURSE NOTES: Pt is awake, sponge bath given, oral care provided. Gown and linen changed. No bm noted. Will continue plan of care and monitor pt.
[2020-02-24 04:00] VITALS: BP 140/83
[2020-02-24 06:52] LABS: ANION GAP 11 mmol/L (5-15); BLOOD UREA NITROGEN 29 mg/dL (7-18); CALCIUM 8.2 MG/DL (8.5-10.1); CARBON DIOXIDE 22 MMOL/L (21-32); CHLORIDE 108 MMOL/L (98-107); CREATININE 1.1 MG/DL (0.55-1.30); POTASSIUM 3.4 MMOL/L (3.5-5.1); SODIUM 141 MMOL/L (136-145)
--- NOTE | 2020-02-24 07:00 | NUR ---
NURSE NOTES: Received patient from Duncan PELAYO. Patient is awake in bed restless. bilateral soft restraints on. AO x1-2. sinus rhythm on the monitor. on nonrebreather 15L saturation 98%. urinal at bedside. RH 22G running 1/2NS @100ml/hr. bed to lowest position and locked. side rails up x3. call light within easy reach. Will continue plan of care.
--- NOTE | 2020-02-24 07:19 | NUR ---
NURSE HAND-OFF REPORT: Important Events on Shift: Fair Patient Status: Fair Diet: Regular, Soft Chopped Pending Orders: Pending Results/Labs: Pending MD notification: Latest Vital Signs: Temperature 96.8 , Pulse 83 , B/P 140 /83 , Respiratory Rate 26 , O2 SAT 94 , Non-Rebreather, O2 Flow Rate 15.0 . Vital Sign Comment: Stable EKG Rhythm: Sinus Rhythm Rhythm change?: N MD Notified?: - MD Response: Latest Myers Fall Score: 45 Fall Risk: High Risk Safety Measures: Call light , Bed Alarm Zone 1, Side Rails Side Rails x3, Bed position Low and Locked. Fall Precautions: Yellow Socks Patient Fall Education Report given to PIERCE Connors.
[2020-02-24 08:00] VITALS: BP 157/88
--- NOTE | 2020-02-24 08:46 | NUR ---
NURSE NOTES: noted patient was anxious and restless. tried to take out PRN ativan from pyxis and this nurse forgot to take out ativan ojeda first. called charge nurse Hugh and closed the fridge and signed this nurse out of the pyxis. logged on again and took out ativan ojeda and ativan, and waste was performed. There is an undocumented waste for this patient for an ativan this nurse did not take out. charge nurse aware and pharmacy.
[2020-02-24] MEDS: Docusate 100mg cap ORAL SCH ×2 (08:51→21:26)
[2020-02-24] MEDS: dexAMETHasone 10mg/ml Inj IV SCH (08:51)
[2020-02-24] MEDS: LORazepam Inj 2mg/ml 1ml IV PRN ×3 (08:52→22:14)
[2020-02-24] MEDS ORDERED: VITAMIN D350 MC1 PO (11:57)
[2020-02-24] MEDS ORDERED: MULTIVITAMINS1 EAC8 ORAL (11:57)
[2020-02-24] MEDS ORDERED: ACETAMINOPHEN325 M1 ORAL (11:57)
[2020-02-24 12:00] VITALS: BP 134/86
--- NOTE | 2020-02-24 12:25 | General Progress Note ---
Subjective Allergies: Coded Allergies: No Known Allergies (Unverified , 02/14/19) Subjective c/o muscle cramps Objective Last 24 Hour Vital Signs Date Time Temp Pulse Resp B/P (MAP) Pulse Ox O2 Delivery O2 Flow Rate FiO2 02/24/20 09:22 96 39 157/88 91 02/24/20 08:52 96 39 157/88 91 02/24/20 08:00 97.2 96 39 157/88 (111) 91 02/24/20 08:00 85 02/24/20 04:00 96.8 83 26 140/83 (102) 94 02/24/20 04:00 15.0 100 02/24/20 04:00 Non-Rebreather 15.0 02/24/20 03:50 86 02/24/20 00:00 Non-Rebreather 15.0 02/24/20 00:00 96.5 88 28 142/71 (94) 95 02/23/20 23:49 84 02/23/20 22:09 70 19 128/71 91 02/23/20 21:39 94 21 120/71 94 02/23/20 20:10 70 18 94 Non-Rebreather 15.0 100 02/23/20 20:10 94 Non-Rebreather 15.0 100 02/23/20 20:00 Non-Rebreather 15.0 02/23/20 20:00 97.0 85 29 141/76 (97) 95 02/23/20 20:00 15.0 100 02/23/20 19:33 75 02/23/20 16:00 78 02/23/20 16:00 98.1 79 26 130/74 (92) 97 02/23/20 16:00 15.0 100 02/23/20 16:00 Non-Rebreather 15.0 Intake and Output 02/23/20 02/24/20 19:00 07:00 Intake Total 1100 ml 1500 ml Balance 1100 ml 1500 ml Intake Oral 200 ml 500 ml IV Total 900 ml 1000 ml # Voids 3 2 # Bowel Movements 2 Laboratory Tests 02/24/20 02:55: Sodium Level 141, Potassium Level 3.4L, Chloride Level 108H, Carbon Dioxide Level 22, Anion Gap 11, Blood Urea Nitrogen 29H, Creatinine 1.1, Estimat Glomerular Filtration Rate > 60, Glucose Level 111H, Calcium Level 8.2L Height (Feet): 5 Height (Inches): 10.00 Weight (Pounds): 178 Objective CV RR Lungs CTA Abd SNT BS + E No CCE Assessment/Plan Assessment/Plan: Covid 19 - per ID Volume depletion -IVF. Yumi Lam MD Feb 24, 2020 12:25
--- NOTE | 2020-02-24 14:31 | Infectious Diseases Prog Note ---
Assessment/Plan Assessment/Plan IMPRESSION: COVID-19 pneumonia. Hypoxemic respiratory failure. Lymphocytopenia, Lactic acidosis, Acute renal failure, Hypertension, Osteoporosis, Spinal stenosis. RECOMMENDATION: Continue dexamethasone Subjective ROS Limited/Unobtainable: Yes Constitutional: Denies: fever Neurologic: Reports: confusion, other - on restraint Allergies: Coded Allergies: No Known Allergies (Unverified , 02/14/19) Objective Last 24 Hour Vital Signs Date Time Temp Pulse Resp B/P (MAP) Pulse Ox O2 Delivery O2 Flow Rate FiO2 02/24/20 12:00 95 02/24/20 12:00 96.8 98 26 134/86 (102) 89 02/24/20 12:00 Non-Rebreather 15.0 02/24/20 12:00 15.0 100 02/24/20 09:22 96 39 157/88 91 02/24/20 08:52 96 39 157/88 91 02/24/20 08:00 97.2 96 39 157/88 (111) 91 02/24/20 08:00 Non-Rebreather 15.0 02/24/20 08:00 85 02/24/20 08:00 15.0 100 02/24/20 04:00 96.8 83 26 140/83 (102) 94 02/24/20 04:00 15.0 100 02/24/20 04:00 Non-Rebreather 15.0 02/24/20 03:50 86 02/24/20 00:00 Non-Rebreather 15.0 02/24/20 00:00 96.5 88 28 142/71 (94) 95 02/23/20 23:49 84 02/23/20 22:09 70 19 128/71 91 02/23/20 21:39 94 21 120/71 94 02/23/20 20:10 70 18 94 Non-Rebreather 15.0 100 02/23/20 20:10 94 Non-Rebreather 15.0 100 02/23/20 20:00 Non-Rebreather 15.0 02/23/20 20:00 97.0 85 29 141/76 (97) 95 02/23/20 20:00 15.0 100 02/23/20 19:33 75 02/23/20 16:00 78 02/23/20 16:00 98.1 79 26 130/74 (92) 97 12/24/20 16:00 15.0 100 02/23/20 16:00 Non-Rebreather 15.0 Height (Feet): 5 Height (Inches): 10.00 Weight (Pounds): 178 HEENT: mucous membranes moist Respiratory/Chest: other - Oxygen by NRB mask Cardiovascular: normal rate Abdomen: soft, non tender Extremities: no edema Neurologic/Psychiatric: disoriented Microbiology Date/Time Source Procedure Growth Status 02/22/20 12:05 Rectum - Final NO CARBAPENEM-RESISTANT ENTEROBACTERI... Complete 02/22/20 12:05 Rectum VRE Culture - Final NO VANCOMYCIN RESISTANT ENTEROCOCCUS ... Complete 02/22/20 12:05 Nasal Nares MRSA Culture - Final NO METHICILLIN RESISTANT STAPH AUREUS... Complete 02/22/20 12:05 Nasal Nares - Final Complete 02/22/20 12:05 Nasal Nares - Final Complete 02/22/20 11:25 Nasopharynx SARS-CoV-2 RdRp Gene Assay - Final Complete 02/22/20 11:25 Blood Blood Culture - Preliminary NO GROWTH AFTER 24 HOURS Resulted 02/22/20 11:10 Blood Blood Culture - Preliminary NO GROWTH AFTER 24 HOURS Resulted Laboratory Tests Test 02/24/20 02:55 Sodium Level 141 MMOL/L (136-145) Potassium Level 3.4 MMOL/L (3.5-5.1) L Chloride Level 108 MMOL/L (98-107) H Carbon Dioxide Level 22 MMOL/L (21-32) Anion Gap 11 mmol/L (5-15) Blood Urea Nitrogen 29 mg/dL (7-18) H Creatinine 1.1 MG/DL (0.55-1.30) Estimat Glomerular Filtration Rate > 60 mL/min (>60) Glucose Level 111 MG/DL (74-106) H Calcium Level 8.2 MG/DL (8.5-10.1) L Current Medications Medications (Trade) Dose Ordered Sig/Gabi Route PRN Reason Start Time Stop Time Status Last Admin Dose Admin Acetaminophen (Tylenol) 650 mg Q4H PRN ORAL Mild Pain (Pain Scale 1-3) 02/22/20 16:15 03/23/20 16:14 Acetaminophen (Tylenol) 650 mg Q4H PRN ORAL Temp >100.5 02/22/20 16:15 03/23/20 16:14 Acetaminophen/ Hydrocodone Bitart ([place] 5/325) 1 tab Q6H PRN ORAL pain 4-10 02/23/20 09:00 03/01/20 08:59 02/23/20 11:29 Albuterol Sulfate (Proventil MDI) 2 puff Q4H PRN INH Shortness of Breath 02/22/20 15:15 05/22/20 15:14 Dexamethasone Sodium Phosphate (Decadron 10mg/ ml Inj) 6 mg DAILY IV 02/23/20 09:00 03/02/20 09:01 02/24/20 08:51 Docusate Sodium (Colace) 100 mg EVERY 12 HOURS ORAL 02/22/20 21:00 03/23/20 20:59 02/24/20 08:51 Enoxaparin Sodium (Lovenox) 40 mg Q24H SUBQ 02/22/20 18:00 05/22/20 17:59 02/23/20 18:57 Lorazepam (Ativan 2mg/ml 1ml) 1 mg Q6H PRN IV Agitation 02/23/20 21:15 03/01/20 21:14 02/24/20 08:52 Ondansetron HCl (Zofran) 4 mg Q6H PRN IVP Nausea & Vomiting 02/22/20 16:15 03/23/20 16:14 Pantoprazole (Protonix) 40 mg DAILY ORAL 02/23/20 09:00 03/24/20 08:59 02/24/20 08:51 Sodium Chloride 1,000 ml @ 100 mls/hr Q10H IV 02/22/20 18:00 03/23/20 17:59 02/24/20 09:51 Pancho Lr MD Feb 24, 2020 14:31
[2020-02-24 16:00] VITALS: BP 141/66
[2020-02-24] MEDS: Enoxaparin 40mg Inj SUBQ SCH (17:07)
--- NOTE | 2020-02-24 19:10 | NUR ---
NURSE HAND-OFF REPORT: Important Events on Shift: Patient Status: FULL CODE Diet: regular diet soft chopped Pending Orders: [] Pending Results/Labs:[] Pending MD notification:[] Latest Vital Signs: Temperature 97.7 , Pulse 94 , B/P 141 /66 , Respiratory Rate 28 , O2 SAT 93 , Non-Rebreather, O2 Flow Rate 15.0 . Vital Sign Comment: stable EKG Rhythm: Sinus Rhythm Rhythm change?: N MD Notified?: - MD Response: Latest Myers Fall Score: 45 Fall Risk: High Risk Safety Measures: Call light , Bed Alarm Zone 1, Side Rails Side Rails x3, Bed position Low and Locked. Fall Precautions: Yellow Socks Patient Fall Education Report given to Jojo PELAYO.
--- NOTE | 2020-02-24 19:46 | NUR ---
NURSE NOTES: Report received from PIERCE Connors. Patient is awake on bed, AO X 1, very restless and uncooperative. rotor pilot is in place, shows sinus tachycardia with HR of 120's at this time. On regular diet, soft chopped, crush medications. On fall, aspiration precaution, with bilateral soft wrist restraints, assessment will be done every 2 hours. IV site is on right forearm g-20, running 1/2 NS @ 100 cc/hour that is patent an intact. Safety measures are in place, bed in lowest and locked position, side rails up x 3, will continue plan of care.
[2020-02-24 20:00] VITALS: BP 104/71
--- NOTE | 2020-02-24 20:50 | NUR ---
NURSE NOTES: Patient has been restless and desaturate to 85-87%. Called Dr. Lam awaiting for call back.
[2020-02-24] MEDS: HYDROcodone/Acetamin 5/325 tab ORAL PRN (21:27)
--- NOTE | 2020-02-24 21:30 | NUR ---
NURSE NOTES: Spoke to Dr. Lam, informed him regarding patient's current status, BP of 104/71 and HR ranging from 140's to 160's and he doesn't want to start metoprolol at this time due to patient's blood pressure.
--- NOTE | 2020-02-24 23:00 | NUR ---
NURSE NOTES: Patient is still restless and oxygen saturation of 85-88%. Called Dr. Escobar awaiting for call back.
--- NOTE | 2020-02-24 23:25 | NUR ---
NURSE NOTES: Spoke with Dr. Escobar, ordered BIPAP, setting of 16/11, BUR of 20 and ABG tomorrow a.m, received will carry out.
[2020-02-25] VITALS: BP 127/78
--- NOTE | 2020-02-25 00:57 | Pulmonology Progress Note ---
Subjective ROS Limited/Unobtainable: Yes Constitutional: Denies: fever Allergies: Coded Allergies: No Known Allergies (Unverified , 02/14/19) Objective Last 24 Hour Vital Signs Date Time Temp Pulse Resp B/P (MAP) Pulse Ox O2 Delivery O2 Flow Rate FiO2 02/25/20 00:00 Non-Rebreather 15.0 02/25/20 00:00 100 02/25/20 00:00 98.1 105 36 127/78 (94) 94 02/24/20 23:45 102 35 94 100 02/24/20 22:44 138 33 129/81 88 02/24/20 22:14 141 31 104/71 88 02/24/20 20:00 Non-Rebreather 15.0 02/24/20 20:00 98.2 141 31 104/71 (82) 89 02/24/20 19:36 93 Non-Rebreather 15.0 100 02/24/20 16:00 15.0 100 02/24/20 16:00 94 02/24/20 16:00 Non-Rebreather 15.0 02/24/20 16:00 97.7 94 28 141/66 (91) 93 02/24/20 15:36 94 28 141/66 93 02/24/20 15:06 102 32 121/86 89 02/24/20 12:00 95 02/24/20 12:00 96.8 98 26 134/86 (102) 89 02/24/20 12:00 Non-Rebreather 15.0 02/24/20 12:00 15.0 100 02/24/20 09:22 96 39 157/88 91 02/24/20 08:52 96 39 157/88 91 02/24/20 08:00 97.2 96 39 157/88 (111) 91 02/24/20 08:00 Non-Rebreather 15.0 02/24/20 08:00 85 02/24/20 08:00 15.0 100 02/24/20 04:00 96.8 83 26 140/83 (102) 94 02/24/20 04:00 15.0 100 02/24/20 04:00 Non-Rebreather 15.0 02/24/20 03:50 86 Intake and Output 02/24/20 02/25/20 19:00 07:00 Intake Total 500 ml Balance 500 ml IV Total 500 ml # Voids 3 Microbiology Date/Time Source Procedure Growth Status 02/22/20 12:05 Rectum - Final NO CARBAPENEM-RESISTANT ENTEROBACTERI... Complete 02/22/20 12:05 Rectum VRE Culture - Final NO VANCOMYCIN RESISTANT ENTEROCOCCUS ... Complete 02/22/20 12:05 Nasal Nares MRSA Culture - Final NO METHICILLIN RESISTANT STAPH AUREUS... Complete 02/22/20 12:05 Nasal Nares - Final Complete 02/22/20 12:05 Nasal Nares - Final Complete 02/22/20 11:25 Nasopharynx SARS-CoV-2 RdRp Gene Assay - Final Complete 02/22/20 11:25 Blood Blood Culture - Preliminary NO GROWTH AFTER 24 HOURS Resulted 02/22/20 11:10 Blood Blood Culture - Preliminary NO GROWTH AFTER 24 HOURS Resulted Laboratory Tests 02/24/20 02:55: Sodium Level 141, Potassium Level 3.4L, Chloride Level 108H, Carbon Dioxide Level 22, Anion Gap 11, Blood Urea Nitrogen 29H, Creatinine 1.1, Estimat Glomerular Filtration Rate > 60, Glucose Level 111H, Calcium Level 8.2L Current Medications Medications (Trade) Dose Ordered Sig/Gabi Route PRN Reason Start Time Stop Time Status Last Admin Dose Admin Acetaminophen (Tylenol) 650 mg Q4H PRN ORAL Mild Pain (Pain Scale 1-3) 02/22/20 16:15 03/23/20 16:14 Acetaminophen (Tylenol) 650 mg Q4H PRN ORAL Temp >100.5 02/22/20 16:15 03/23/20 16:14 Acetaminophen/ Hydrocodone Bitart ([place] 5/325) 1 tab Q6H PRN ORAL pain 4-10 02/23/20 09:00 03/01/20 08:59 02/24/20 21:27 Albuterol Sulfate (Proventil MDI) 2 puff Q4H PRN INH Shortness of Breath 02/22/20 15:15 05/22/20 15:14 Dexamethasone Sodium Phosphate (Decadron 10mg/ ml Inj) 6 mg DAILY IV 02/23/20 09:00 03/02/20 09:01 02/24/20 08:51 Docusate Sodium (Colace) 100 mg EVERY 12 HOURS ORAL 02/22/20 21:00 03/23/20 20:59 02/24/20 21:26 Enoxaparin Sodium (Lovenox) 40 mg Q24H SUBQ 02/22/20 18:00 05/22/20 17:59 02/24/20 17:07 Lorazepam (Ativan 2mg/ml 1ml) 1 mg Q6H PRN IV Agitation 02/23/20 21:15 03/01/20 21:14 02/24/20 22:14 Ondansetron HCl (Zofran) 4 mg Q6H PRN IVP Nausea & Vomiting 02/22/20 16:15 03/23/20 16:14 Pantoprazole (Protonix) 40 mg DAILY ORAL 02/23/20 09:00 03/24/20 08:59 02/24/20 08:51 Sodium Chloride 1,000 ml @ 100 mls/hr Q10H IV 02/22/20 18:00 03/23/20 17:59 02/24/20 09:51 Assessment/Plan Assessment/Plan Pulmonary Progress Note vist date 02 24 2020 HPI: Patient is an 89-year-old man, [facility] Resident admitted with Covid 19 Pneumonia,had been noted tohave weakness and shortness of breath. Has been positive for Covid19 for several weeks Past Medical History: Organic brain syndrome Hypertensive cardiovascular disease Benign prostatic hypertrophy Gout Low back pain Osteoporosis Recurrent urinary tract infections Medications noted Allergies: No known drug allergies. Remains on HFNB Objective: Vital signs noted PE: Deferred Covid 19 Laboratory noted Chest x-ray: bilateral infiltrates. ASSESSMENT: COVID-19 pneumonia Hypoxic Respiratory Failure Dehydration Malnutrition Organic brain syndrome Hypertensive cardiovascular disease Benign prostatic hypertrophy Gout Low back pain Osteoporosis Recurrent urinary tract infections PLAN: Oxygen PRN - currently High-flow oxygen BiPAP PRN ABG PRN Bronchodilators Decadron/ID PPX DIRECT CHILL CASTER Medications Monitor labs Visit date 02 24 2020 Lionel Escobar MD Feb 25, 2020 00:57
[2020-02-25 04:00] VITALS: BP 129/75
--- NOTE | 2020-02-25 07:35 | NUR ---
NURSE NOTES: Received patient report from PIERCE Uribe. Pt is AO x1. 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 Patient has IV site is on right forearm g-20, running 1/2 NS @ 100 cc/hour that is patent and intact. Patient with bilateral soft wrist restraints, assessment will be done every 2 hours. Bed in lowest position, locked with side rails x2 up. Call light within reach.
--- NOTE | 2020-02-25 07:36 | NUR ---
NURSE HAND-OFF REPORT: Important Events on Shift: Patient has been desaturating to 85-89%, Dr. Escobar was aware and ordered BIPAP. Patient Status: Patient is very restless and uncooperative to care. Dr. Lam and Dr. Escobar aware. Plan of care endorsed. Diet: Regular dier, soft chopped Pending Orders: none Pending Results/Labs:AM lab result Pending MD notification:none Latest Vital Signs: Temperature 98.4 , Pulse 104 , B/P 129 /75 , Respiratory Rate 30 , O2 SAT 91 , Non-Rebreather, O2 Flow Rate 100.0 . Vital Sign Comment: stable EKG Rhythm: Sinus Tachycardia Rhythm change?: N MD Notified?: - MD Response: Latest Myers Fall Score: 55 Fall Risk: High Risk Safety Measures: Call light , Bed Alarm Zone 1, Side Rails Side Rails x3, Bed position Low and Locked. Fall Precautions: Yellow Socks Yellow Gown Door Sign Patient Fall Education Report given to PIERCE Azul.
[2020-02-25 08:00] VITALS: BP 122/61
[2020-02-25 08:20] LABS: CREATININE 1.4 MG/DL (0.55-1.30); POTASSIUM 4.4 MMOL/L (3.5-5.1)
--- NOTE | 2020-02-25 08:23 | General Progress Note ---
Subjective Allergies: Coded Allergies: No Known Allergies (Unverified , 02/14/19) Subjective c/o muscle cramps Objective Last 24 Hour Vital Signs Date Time Temp Pulse Resp B/P (MAP) Pulse Ox O2 Delivery O2 Flow Rate FiO2 02/25/20 08:00 Bi-pap 100.0 02/25/20 04:00 100 02/25/20 04:00 104 02/25/20 04:00 Bi-pap 100.0 02/25/20 04:00 98.4 95 30 129/75 (93) 91 02/25/20 01:00 104 39 92 100 02/25/20 00:00 Non-Rebreather 15.0 02/25/20 00:00 100 02/25/20 00:00 98.1 105 36 127/78 (94) 94 02/25/20 00:00 109 02/24/20 23:45 102 35 94 100 02/24/20 22:44 138 33 129/81 88 02/24/20 22:14 141 31 104/71 88 02/24/20 20:00 Non-Rebreather 15.0 02/24/20 20:00 98.2 141 31 104/71 (82) 89 02/24/20 20:00 106 02/24/20 19:36 93 Non-Rebreather 15.0 100 02/24/20 16:00 15.0 100 02/24/20 16:00 94 02/24/20 16:00 Non-Rebreather 15.0 02/24/20 16:00 97.7 94 28 141/66 (91) 93 02/24/20 15:36 94 28 141/66 93 02/24/20 15:06 102 32 121/86 89 02/24/20 12:00 95 02/24/20 12:00 96.8 98 26 134/86 (102) 89 02/24/20 12:00 Non-Rebreather 15.0 02/24/20 12:00 15.0 100 02/24/20 09:22 96 39 157/88 91 02/24/20 08:52 96 39 157/88 91 Intake and Output 02/24/20 02/25/20 19:00 07:00 Intake Total 600 ml 705 ml Balance 600 ml 705 ml Intake Oral 5 ml IV Total 600 ml 700 ml # Voids 3 4 Laboratory Tests 02/25/20 06:45: Sodium Level 145, Potassium Level 4.4, Chloride Level 110H, Carbon Dioxide Level 23, Anion Gap 12, Blood Urea Nitrogen 25H, Creatinine 1.4H, Estimat Glomerular Filtration Rate 47.7, Glucose Level 100, Calcium Level 8.0L Height (Feet): 5 Height (Inches): 10.00 Weight (Pounds): 178 Objective CV RR Lungs CTA Abd SNT BS + E No CCE Assessment/Plan Assessment/Plan: Covid 19 - per ID Volume depletion -IVF. Yumi Lam MD Feb 25, 2020 08:23
[2020-02-25] MEDS: Docusate 100mg cap ORAL SCH ×2 (09:04→21:00)
[2020-02-25] MEDS: dexAMETHasone 10mg/ml Inj IV SCH (09:04)
--- NOTE | 2020-02-25 09:32 | Infectious Diseases Prog Note ---
Assessment/Plan Assessment/Plan IMPRESSION: COVID-19 pneumonia. Hypoxemic respiratory failure. Lymphocytopenia, Lactic acidosis, Acute renal failure, Hypertension, Osteoporosis, Spinal stenosis. RECOMMENDATION: Continue dexamethasone Repeat CXR Subjective ROS Limited/Unobtainable: Yes Constitutional: Denies: fever Neurologic: Reports: confusion, other - on restraint Allergies: Coded Allergies: No Known Allergies (Unverified , 02/14/19) Objective Last 24 Hour Vital Signs Date Time Temp Pulse Resp B/P (MAP) Pulse Ox O2 Delivery O2 Flow Rate FiO2 02/25/20 08:00 98.8 108 26 122/61 (81) 91 02/25/20 08:00 Bi-pap 100.0 02/25/20 07:05 96 Bi-Pap 100 02/25/20 07:05 124 38 96 100 02/25/20 04:00 100 02/25/20 04:00 104 02/25/20 04:00 Bi-pap 100.0 02/25/20 04:00 98.4 95 30 129/75 (93) 91 02/25/20 01:00 104 39 92 100 02/25/20 00:00 Non-Rebreather 15.0 02/25/20 00:00 100 02/25/20 00:00 98.1 105 36 127/78 (94) 94 02/25/20 00:00 109 02/24/20 23:45 102 35 94 100 02/24/20 22:44 138 33 129/81 88 02/24/20 22:14 141 31 104/71 88 02/24/20 20:00 Non-Rebreather 15.0 02/24/20 20:00 98.2 141 31 104/71 (82) 89 02/24/20 20:00 106 02/24/20 19:36 93 Non-Rebreather 15.0 100 02/24/20 16:00 15.0 100 02/24/20 16:00 94 02/24/20 16:00 Non-Rebreather 15.0 02/24/20 16:00 97.7 94 28 141/66 (91) 93 02/24/20 15:36 94 28 141/66 93 02/24/20 15:06 102 32 121/86 89 02/24/20 12:00 95 02/24/20 12:00 96.8 98 26 134/86 (102) 89 02/24/20 12:00 Non-Rebreather 15.0 02/24/20 12:00 15.0 100 Height (Feet): 5 Height (Inches): 10.00 Weight (Pounds): 178 HEENT: mucous membranes moist Respiratory/Chest: other - on BIPAP Cardiovascular: tachycardia Abdomen: soft, non tender Extremities: no edema Neurologic/Psychiatric: disoriented Microbiology Date/Time Source Procedure Growth Status 02/22/20 12:05 Rectum - Final NO CARBAPENEM-RESISTANT ENTEROBACTERI... Complete 02/22/20 12:05 Rectum VRE Culture - Final NO VANCOMYCIN RESISTANT ENTEROCOCCUS ... Complete 02/22/20 12:05 Nasal Nares MRSA Culture - Final NO METHICILLIN RESISTANT STAPH AUREUS... Complete 02/22/20 12:05 Nasal Nares - Final Complete 02/22/20 12:05 Nasal Nares - Final Complete 02/22/20 11:25 Nasopharynx SARS-CoV-2 RdRp Gene Assay - Final Complete 02/22/20 11:25 Blood Blood Culture - Preliminary NO GROWTH AFTER 24 HOURS Resulted 02/22/20 11:10 Blood Blood Culture - Preliminary NO GROWTH AFTER 24 HOURS Resulted Laboratory Tests Test 02/25/20 06:45 02/25/20 08:15 Sodium Level 145 MMOL/L (136-145) Potassium Level 4.4 MMOL/L (3.5-5.1) Chloride Level 110 MMOL/L (98-107) H Carbon Dioxide Level 23 MMOL/L (21-32) Anion Gap 12 mmol/L (5-15) Blood Urea Nitrogen 25 mg/dL (7-18) H Creatinine 1.4 MG/DL (0.55-1.30) H Estimat Glomerular Filtration Rate 47.7 mL/min (>60) Glucose Level 100 MG/DL (74-106) Calcium Level 8.0 MG/DL (8.5-10.1) L Arterial Blood pH 7.409 (7.350-7.450) Arterial Blood Partial Pressure CO2 29.9 mmHg (35.0-45.0) L Arterial Blood Partial Pressure O2 50.9 mmHg (75.0-100.0) L Arterial Blood HCO3 18.5 mmol/L (22.0-26.0) L Arterial Blood Oxygen Saturation 84.6 % (95-100) *L Arterial Blood Base Excess -4.8 (-2-2) L Home Test Positive Current Medications Medications (Trade) Dose Ordered Sig/Gabi Route PRN Reason Start Time Stop Time Status Last Admin Dose Admin Acetaminophen (Tylenol) 650 mg Q4H PRN ORAL Mild Pain (Pain Scale 1-3) 02/22/20 16:15 03/23/20 16:14 Acetaminophen (Tylenol) 650 mg Q4H PRN ORAL Temp >100.5 02/22/20 16:15 03/23/20 16:14 Acetaminophen/ Hydrocodone Bitart ([place] 5/325) 1 tab Q6H PRN ORAL pain 4-10 02/23/20 09:00 03/01/20 08:59 02/24/20 21:27 Albuterol Sulfate (Proventil MDI) 2 puff Q4H PRN INH Shortness of Breath 02/22/20 15:15 05/22/20 15:14 Dexamethasone Sodium Phosphate (Decadron 10mg/ ml Inj) 6 mg DAILY IV 02/23/20 09:00 03/02/20 09:01 02/25/20 09:04 Docusate Sodium (Colace) 100 mg EVERY 12 HOURS ORAL 02/22/20 21:00 03/23/20 20:59 02/25/20 09:04 Enoxaparin Sodium (Lovenox) 40 mg Q24H SUBQ 02/22/20 18:00 05/22/20 17:59 02/24/20 17:07 Lorazepam (Ativan 2mg/ml 1ml) 1 mg Q6H PRN IV Agitation 02/23/20 21:15 03/01/20 21:14 02/24/20 22:14 Ondansetron HCl (Zofran) 4 mg Q6H PRN IVP Nausea & Vomiting 02/22/20 16:15 03/23/20 16:14 Pantoprazole (Protonix) 40 mg DAILY ORAL 02/23/20 09:00 03/24/20 08:59 02/25/20 09:04 Sodium Chloride 1,000 ml @ 100 mls/hr Q10H IV 02/22/20 18:00 03/23/20 17:59 02/25/20 05:10 Pancho Lr MD Feb 25, 2020 09:32
[2020-02-25 12:00] VITALS: BP 139/81
[2020-02-25 16:00] VITALS: BP 145/78
[2020-02-25] MEDS: Enoxaparin 40mg Inj SUBQ SCH (17:23)
--- NOTE | 2020-02-25 19:05 | NUR ---
NURSE HAND-OFF REPORT: Important Events on Shift:NA Patient Status: Stable Diet: Regular soft chop Pending Orders: NA Pending Results/Labs:NA Pending MD notification:NA Latest Vital Signs: Temperature 98.4 , Pulse 111 , B/P 145 /78 , Respiratory Rate 21 , O2 SAT 91 , Non-Rebreather, O2 Flow Rate 100.0 . Vital Sign Comment: Stable, Tachycardia EKG Rhythm: Sinus Tachycardia Rhythm change?: N MD Notified?: - MD Response: Latest Myers Fall Score: 55 Fall Risk: High Risk Safety Measures: Call light , Bed Alarm Zone 1, Side Rails Side Rails x3, Bed position Low and Locked. Fall Precautions: Yellow Socks Yellow Gown Door Sign Patient Fall Education Report given to PIERCE Caceres.
--- NOTE | 2020-02-25 19:58 | Pulmonology Progress Note ---
Subjective ROS Limited/Unobtainable: Yes Constitutional: Denies: fever Allergies: Coded Allergies: No Known Allergies (Unverified , 02/14/19) Objective Last 24 Hour Vital Signs Date Time Temp Pulse Resp B/P (MAP) Pulse Ox O2 Delivery O2 Flow Rate FiO2 02/25/20 16:00 98.4 116 21 145/78 (100) 91 02/25/20 16:00 Bi-pap 100.0 02/25/20 16:00 100 02/25/20 16:00 111 02/25/20 13:35 117 42 98 100 02/25/20 12:00 121 02/25/20 12:00 Bi-pap 100.0 02/25/20 12:00 98.1 123 20 139/81 (100) 91 02/25/20 12:00 100 02/25/20 08:00 100 02/25/20 08:00 98.8 108 26 122/61 (81) 91 02/25/20 08:00 Bi-pap 100.0 02/25/20 08:00 124 02/25/20 07:05 96 Bi-Pap 100 02/25/20 07:05 124 38 96 100 02/25/20 04:00 100 02/25/20 04:00 104 02/25/20 04:00 Bi-pap 100.0 02/25/20 04:00 98.4 95 30 129/75 (93) 91 02/25/20 01:00 104 39 92 100 02/25/20 00:00 Non-Rebreather 15.0 02/25/20 00:00 100 02/25/20 00:00 98.1 105 36 127/78 (94) 94 02/25/20 00:00 109 02/24/20 23:45 102 35 94 100 02/24/20 22:44 138 33 129/81 88 02/24/20 22:14 141 31 104/71 88 02/24/20 20:00 Non-Rebreather 15.0 02/24/20 20:00 98.2 141 31 104/71 (82) 89 02/24/20 20:00 106 Intake and Output 02/24/20 02/25/20 19:00 07:00 Intake Total 600 ml 805 ml Balance 600 ml 805 ml Intake Oral 5 ml IV Total 600 ml 800 ml # Voids 3 4 Laboratory Tests 02/25/20 06:45: Sodium Level 145, Potassium Level 4.4, Chloride Level 110H, Carbon Dioxide Level 23, Anion Gap 12, Blood Urea Nitrogen 25H, Creatinine 1.4H, Estimat Glomerular Filtration Rate 47.7, Glucose Level 100, Calcium Level 8.0L 02/25/20 08:15: Arterial Blood pH 7.409, Arterial Blood Partial Pressure CO2 29.9L, Arterial Blood Partial Pressure O2 50.9L, Arterial Blood HCO3 18.5L, Arterial Blood Oxygen Saturation 84.6*L, Arterial Blood Base Excess -4.8L, Home Test Positive Current Medications Medications (Trade) Dose Ordered Sig/Gabi Route PRN Reason Start Time Stop Time Status Last Admin Dose Admin Acetaminophen (Tylenol) 650 mg Q4H PRN ORAL Mild Pain (Pain Scale 1-3) 02/22/20 16:15 03/23/20 16:14 Acetaminophen (Tylenol) 650 mg Q4H PRN ORAL Temp >100.5 02/22/20 16:15 03/23/20 16:14 Acetaminophen/ Hydrocodone Bitart ([place] 5/325) 1 tab Q6H PRN ORAL pain 4-10 02/23/20 09:00 03/01/20 08:59 02/24/20 21:27 Albuterol Sulfate (Proventil MDI) 2 puff Q4H PRN INH Shortness of Breath 02/22/20 15:15 05/22/20 15:14 Dexamethasone Sodium Phosphate (Decadron 10mg/ ml Inj) 6 mg DAILY IV 02/23/20 09:00 03/02/20 09:01 02/25/20 09:04 Docusate Sodium (Colace) 100 mg EVERY 12 HOURS ORAL 02/22/20 21:00 03/23/20 20:59 02/25/20 09:04 Enoxaparin Sodium (Lovenox) 40 mg Q24H SUBQ 02/22/20 18:00 05/22/20 17:59 02/25/20 17:23 Lorazepam (Ativan 2mg/ml 1ml) 1 mg Q6H PRN IV Agitation 02/23/20 21:15 03/01/20 21:14 02/24/20 22:14 Ondansetron HCl (Zofran) 4 mg Q6H PRN IVP Nausea & Vomiting 12/23/20 16:15 03/23/20 16:14 Pantoprazole (Protonix) 40 mg DAILY ORAL 02/23/20 09:00 03/24/20 08:59 02/25/20 09:04 Sodium Chloride 1,000 ml @ 100 mls/hr Q10H IV 02/22/20 18:00 03/23/20 17:59 02/25/20 16:26 Assessment/Plan Assessment/Plan Pulmonary Progress Note vist date 02 24 2020 HPI: Patient is an 89-year-old man, Longterm Resident admitted with Covid 19 Pneumonia,had been noted tohave weakness and shortness of breath. Has been positive for Covid19 for several weeks Past Medical History: Organic brain syndrome Hypertensive cardiovascular disease Benign prostatic hypertrophy Gout Low back pain Osteoporosis Recurrent urinary tract infections Medications noted Allergies: No known drug allergies. Remains on Bipap,FIO2 100% Objective: Vital signs noted PE: Deferred Covid 19 Laboratory noted Chest x-ray: bilateral infiltrates. ASSESSMENT: COVID-19 pneumonia Hypoxic Respiratory Failure Dehydration Malnutrition Organic brain syndrome Hypertensive cardiovascular disease Benign prostatic hypertrophy Gout Low back pain Osteoporosis Recurrent urinary tract infections PLAN: Oxygen PRN - currently High-flow oxygen BiPAP PRN ABG PRN Bronchodilators Decadron/ID PPX MANAGER ADMINISTRATION Medications Monitor labs Visit date 02 24 2020 Lionel Escobar MD Feb 25, 2020 19:58
[2020-02-25 20:00] VITALS: BP 151/82
--- NOTE | 2020-02-25 20:05 | NUR ---
NURSE NOTES: Pt received from PIERCE Ramirez alert and oriented x0, localizes pain, opens eyes to pain. On Bipap 16/11, BUR 20 100% FiO2, saturating at 93% with RR in the 50s. Bed alarm on, fall risk precautions implemented. Bed in lowest position, call light and belongings within reach. R fa 20g, running to 1/2 NS at 100 ml/hr. Soft wrist restraints noted on bilateral wrists - pulses equal bilaterally, skin intact, no swelling or redness noted.
--- NOTE | 2020-02-25 20:10 | NUR ---
NURSE NOTES: RN left message with Dr. Escobar regarding pt's increased RR and restlessness at bedside. On Bipap 16/11, BUR 20, 100% FiO2, RR 50s. Per Dr. Escobar - order ABG and call me with results.
--- NOTE | 2020-02-25 21:20 | NUR ---
NURSE NOTES: Pt taken off of bilateral soft wrist restraints, provided redirection and education regarding safety and need for medical devices. Pt continued to moan, alert and oriented to name only. Will continue to reassess patient and monitor for safety.
--- NOTE | 2020-02-25 21:30 | NUR ---
NURSE NOTES: Pt entered room to find patient attempting to reach for Bipap, RN educated pt on need for bipap, pt does not respond verbally or indicate understanding. RN placed arms under sheets and repositioned for comfort. Television turned on for distraction.
--- NOTE | 2020-02-25 21:45 | NUR ---
NURSE NOTES: ABG results communicated by RT Adrienne. RN communicated ABG results to Dr. Escobar. Per Dr. Escobar, "ABG results are ok, pls continue to monitor pt."
--- NOTE | 2020-02-25 22:00 | NUR ---
NURSE NOTES: RN entered room due to bed alarm going off, found pt attempting to get up off bed and reach for Bipap. Pt placed back into bed and re-oriented back to place, self, and situation. Pt does not verbalize understanding or nod head to indicate understanding. Pt repositioned accordingly, bed alarm on. Pt placed back on bilateral soft wrist restraints for pt safety, restraint protocol initiated.
[2020-02-25] MEDS: LORazepam Inj 2mg/ml 1ml IV PRN (23:58)
[2020-02-26] VITALS: BP 138/78
[2020-02-26 04:00] VITALS: BP 156/74
--- NOTE | 2020-02-26 07:20 | NUR ---
NURSE HAND-OFF REPORT: Important Events on Shift: Pt noted to be tachypneic in the 40-50s, ABGs drawn with results shared with Dr. Escobar. Ativan PRN given - improved tachypnea to 20-30s, with saturations at 95% Patient Status: Ongoing Diet: Regular Soft-Chopped Pending Orders: CXR Pending Results/Labs: n/a Pending MD notification: n/a Latest Vital Signs: Temperature 97.7 , Pulse 118 , B/P 156 /74 , Respiratory Rate 29 , O2 SAT 99 , Non-Rebreather, O2 Flow Rate 100.0 . Vital Sign Comment: WNL EKG Rhythm: Sinus Tachycardia Rhythm change?: N MD Notified?: - MD Response: Latest Myers Fall Score: 55 Fall Risk: High Risk Safety Measures: Call light , Bed Alarm Zone 1, Side Rails Side Rails x3, Bed position Low and Locked. Fall Precautions: Yes Yellow Socks Yellow Gown Door Sign Patient Fall Education Report given to PIERCE Elena.
--- NOTE | 2020-02-26 07:30 | NUR ---
NURSE NOTES: Received pt from PIERCE Begum, pt is sleeping, pt is tachypnea and tachycardia, pt has Bipap 17/9 fio2 100%, pt has intact iv access RFA 20G is running well. pt is on continues heart monitoring. all needs attended, bed is locked and is in the lowest position,call light within easy reach. will continue to monitor.
[2020-02-26 08:00] VITALS: BP 119/61
[2020-02-26] MEDS: Docusate 100mg cap ORAL SCH ×2 (09:01→20:09)
[2020-02-26] MEDS: dexAMETHasone 10mg/ml Inj IV SCH (09:02)
--- NOTE | 2020-02-26 09:09 | Diagnostic Imaging Report ---
EXAM: XR Chest, 1 View CLINICAL HISTORY: INFECT TECHNIQUE: Frontal view of the chest. COMPARISON: Chest x-ray 02/22/20 FINDINGS: Lungs: Interval increased diffuse bilateral airspace, consolidative in the retrocardiac region. Pleural space: Small bilateral pleural effusions. No pneumothorax. Heart: Cardiomegaly. Mediastinum: Unremarkable. Bones/joints: Degenerative changes of the spine. IMPRESSION: 1. Cardiomegaly. Interval increased diffuse bilateral airspace, consolidative in the retrocardiac region. Small bilateral pleural effusions. Findings may be worsening pulmonary edema/ CHF versus pneumonitis.
[2020-02-26 09:57] LABS: HEMATOCRIT 39.2 % (42.0-52.0); HEMOGLOBIN 13.4 G/DL (14.2-18.0); MEAN CORPUSCULAR VOLUME 77 FL (80-99); PLATELET COUNT 104 K/UL (150-450); RED BLOOD COUNT 5.11 M/UL (4.70-6.10); RED CELL DISTRIBUTION WIDTH 14.7 % (11.6-14.8)
[2020-02-26 09:58] LABS: WHITE BLOOD COUNT 22.2 K/UL (4.8-10.8)
--- NOTE | 2020-02-26 10:00 | NUR ---
NURSE NOTES: Dr Bran is notified about WBC 22.2 and other lab results and V/S, waiting to call back. will continue to monitor.
--- NOTE | 2020-02-26 10:12 | NUR ---
NURSE NOTES: Dr Bran called back regarding WBC, stated it is because of steroid, no new order. will continue to monitor.
[2020-02-26 10:24] LABS: CALCIUM 7.7 MG/DL (8.5-10.1); CREATININE 1.2 MG/DL (0.55-1.30); POTASSIUM 4.1 MMOL/L (3.5-5.1)
[2020-02-26] MEDS: LORazepam Inj 2mg/ml 1ml IV PRN ×3 (10:34→23:06)
[2020-02-26 12:00] VITALS: BP 115/71
--- NOTE | 2020-02-26 12:00 | NUR ---
NURSE NOTES: Dr Lam visited pt and is aware about RR 45+, no new order received. will continue to monitor.
--- NOTE | 2020-02-26 12:08 | General Progress Note ---
Subjective Allergies: Coded Allergies: No Known Allergies (Unverified , 02/14/19) Subjective Confused. Objective Last 24 Hour Vital Signs Date Time Temp Pulse Resp B/P (MAP) Pulse Ox O2 Delivery O2 Flow Rate FiO2 02/26/20 11:04 109 38 110/59 98 02/26/20 10:34 119 42 119/61 98 02/26/20 08:00 126 02/26/20 08:00 100.2 122 42 119/61 (80) 98 02/26/20 08:00 100 02/26/20 07:32 97 Bi-Pap 100 02/26/20 07:32 128 48 97 100 02/26/20 04:00 97.7 120 29 156/74 (101) 99 02/26/20 04:00 100 02/26/20 04:00 118 02/26/20 04:00 Bi-pap 100.0 02/26/20 01:10 99 Bi-Pap 100 02/26/20 01:10 111 48 99 100 02/26/20 00:28 124 32 138/78 94 02/26/20 00:00 98.1 113 32 138/78 (98) 94 02/26/20 00:00 124 02/26/20 00:00 Bi-pap 100.0 02/25/20 23:58 121 50 151/82 94 02/25/20 20:06 67 50 94 100 02/25/20 20:06 94 Bi-Pap 100 02/25/20 20:00 122 02/25/20 20:00 100 02/25/20 20:00 Bi-pap 100.0 02/25/20 20:00 97.7 124 21 151/82 (105) 93 02/25/20 16:00 98.4 116 21 145/78 (100) 91 02/25/20 16:00 Bi-pap 100.0 02/25/20 16:00 100 02/25/20 16:00 111 02/25/20 13:35 117 42 98 100 Intake and Output 02/25/20 02/26/20 19:00 07:00 Intake Total 1100 ml 900 ml Output Total 600 ml Balance 500 ml 900 ml Intake Oral 100 ml IV Total 1000 ml 900 ml Output Urine Total 600 ml # Voids 4 Laboratory Tests 02/25/20 20:53: Arterial Blood pH 7.392, Arterial Blood Partial Pressure CO2 32.6L, Arterial Blood Partial Pressure O2 61.4L, Arterial Blood HCO3 19.4L, Arterial Blood Oxygen Saturation 90.0L, Arterial Blood Base Excess -4.5L, Home Test Positive 02/26/20 09:05: White Blood Count 22.2*H, Red Blood Count 5.11, Hemoglobin 13.4L, Hematocrit 39.2L, Mean Corpuscular Volume 77L, Mean Corpuscular Hemoglobin 26.2L, Mean Corpuscular Hemoglobin Concent 34.1, Red Cell Distribution Width 14.7, Platelet Count 104L, Mean Platelet Volume 7.7, Neutrophils (%) (Auto) , Lymphocytes (%) (Auto) , Monocytes (%) (Auto) , Eosinophils (%) (Auto) , Basophils (%) (Auto) , Differential Total Cells Counted 100, Neutrophils % (Manual) 94H, Lymphocytes % (Manual) 3L, Monocytes % (Manual) 3, Eosinophils % (Manual) 0, Basophils % (Manual) 0, Band Neutrophils 0, Platelet Estimate DecreasedL, Platelet Morphology Normal, Polychromasia 1+, Anisocytosis 1+, Microcytosis 1+, Sodium Level 144, Potassium Level 4.1, Chloride Level 111H, Carbon Dioxide Level 22, Anion Gap 11, Blood Urea Nitrogen 24H, Creatinine 1.2, Estimat Glomerular Filtration Rate 57.0, Glucose Level 94, Calcium Level 7.7L Height (Feet): 5 Height (Inches): 10.00 Weight (Pounds): 178 Objective On BIPAP CV RR Lungs CTA Abd SNT BS + E No CCE Assessment/Plan Assessment/Plan: Covid 19 - per ID Volume depletion -IVF. Still Hypoxemic pO2 65 on FiO2 100% Yumi Lam MD Feb 26, 2020 12:08
--- NOTE | 2020-02-26 15:37 | Pulmonology Progress Note ---
Subjective ROS Limited/Unobtainable: Yes Constitutional: Denies: fever Allergies: Coded Allergies: No Known Allergies (Unverified , 02/14/19) Objective Last 24 Hour Vital Signs Date Time Temp Pulse Resp B/P (MAP) Pulse Ox O2 Delivery O2 Flow Rate FiO2 02/26/20 12:00 Bi-pap 100.0 02/26/20 12:00 100 02/26/20 12:00 98.1 106 46 115/71 (86) 99 02/26/20 11:32 107 02/26/20 11:29 125 30 96 100 02/26/20 11:04 109 38 110/59 98 02/26/20 10:34 119 42 119/61 98 02/26/20 08:00 126 02/26/20 08:00 100.2 122 42 119/61 (80) 98 02/26/20 08:00 Bi-pap 100.0 02/26/20 08:00 100 02/26/20 07:32 97 Bi-Pap 100 02/26/20 07:32 128 48 97 100 02/26/20 04:00 97.7 120 29 156/74 (101) 99 02/26/20 04:00 100 02/26/20 04:00 118 02/26/20 04:00 Bi-pap 100.0 02/26/20 01:10 99 Bi-Pap 100 02/26/20 01:10 111 48 99 100 02/26/20 00:28 124 32 138/78 94 02/26/20 00:00 98.1 113 32 138/78 (98) 94 02/26/20 00:00 124 02/26/20 00:00 Bi-pap 100.0 02/25/20 23:58 121 50 151/82 94 02/25/20 20:06 67 50 94 100 02/25/20 20:06 94 Bi-Pap 100 02/25/20 20:00 122 02/25/20 20:00 100 02/25/20 20:00 Bi-pap 100.0 02/25/20 20:00 97.7 124 21 151/82 (105) 93 02/25/20 16:00 98.4 116 21 145/78 (100) 91 02/25/20 16:00 Bi-pap 100.0 02/25/20 16:00 100 02/25/20 16:00 111 Intake and Output 02/25/20 02/26/20 19:00 07:00 Intake Total 1100 ml 1000 ml Output Total 600 ml Balance 500 ml 1000 ml Intake Oral 100 ml IV Total 1000 ml 1000 ml Output Urine Total 600 ml # Voids 4 Laboratory Tests 02/25/20 20:53: Arterial Blood pH 7.392, Arterial Blood Partial Pressure CO2 32.6L, Arterial Blood Partial Pressure O2 61.4L, Arterial Blood HCO3 19.4L, Arterial Blood Oxygen Saturation 90.0L, Arterial Blood Base Excess -4.5L, Home Test Positive 02/26/20 09:05: White Blood Count 22.2*H, Red Blood Count 5.11, Hemoglobin 13.4L, Hematocrit 39.2L, Mean Corpuscular Volume 77L, Mean Corpuscular Hemoglobin 26.2L, Mean Corpuscular Hemoglobin Concent 34.1, Red Cell Distribution Width 14.7, Platelet Count 104L, Mean Platelet Volume 7.7, Neutrophils (%) (Auto) , Lymphocytes (%) (Auto) , Monocytes (%) (Auto) , Eosinophils (%) (Auto) , Basophils (%) (Auto) , Differential Total Cells Counted 100, Neutrophils % (Manual) 94H, Lymphocytes % (Manual) 3L, Monocytes % (Manual) 3, Eosinophils % (Manual) 0, Basophils % (Manual) 0, Band Neutrophils 0, Platelet Estimate DecreasedL, Platelet Morphology Normal, Polychromasia 1+, Anisocytosis 1+, Microcytosis 1+, Sodium Level 144, Potassium Level 4.1, Chloride Level 111H, Carbon Dioxide Level 22, Anion Gap 11, Blood Urea Nitrogen 24H, Creatinine 1.2, Estimat Glomerular Filtration Rate 57.0, Glucose Level 94, Calcium Level 7.7L Current Medications Medications (Trade) Dose Ordered Sig/Gabi Route PRN Reason Start Time Stop Time Status Last Admin Dose Admin Acetaminophen (Tylenol) 650 mg Q4H PRN ORAL Mild Pain (Pain Scale 1-3) 02/22/20 16:15 03/23/20 16:14 02/26/20 09:03 Acetaminophen (Tylenol) 650 mg Q4H PRN ORAL Temp >100.5 02/22/20 16:15 03/23/20 16:14 Acetaminophen/ Hydrocodone Bitart ([place] 5/325) 1 tab Q6H PRN ORAL pain 4-10 02/23/20 09:00 03/01/20 08:59 02/24/20 21:27 Albuterol Sulfate (Proventil MDI) 2 puff Q4H PRN INH Shortness of Breath 02/22/20 15:15 05/22/20 15:14 Dexamethasone Sodium Phosphate (Decadron 10mg/ ml Inj) 6 mg DAILY IV 02/23/20 09:00 03/02/20 09:01 02/26/20 09:02 Docusate Sodium (Colace) 100 mg EVERY 12 HOURS ORAL 02/22/20 21:00 03/23/20 20:59 02/26/20 09:01 Enoxaparin Sodium (Lovenox) 40 mg Q24H SUBQ 02/22/20 18:00 05/22/20 17:59 02/25/20 17:23 Lorazepam (Ativan 2mg/ml 1ml) 1 mg Q6H PRN IV Agitation 02/23/20 21:15 03/01/20 21:14 02/26/20 10:34 Ondansetron HCl (Zofran) 4 mg Q6H PRN IVP Nausea & Vomiting 02/22/20 16:15 03/23/20 16:14 Pantoprazole (Protonix) 40 mg DAILY ORAL 02/23/20 09:00 03/24/20 08:59 02/26/20 09:02 Sodium Chloride 1,000 ml @ 100 mls/hr Q10H IV 02/22/20 18:00 03/23/20 17:59 02/26/20 14:19 Assessment/Plan Assessment/Plan Pulmonary Progress Note HPI: Patient is an 89-year-old man, [employer] Resident admitted with Covid 19 Pneumonia,had been noted tohave weakness and shortness of breath. Has been positive for Covid19 for several weeks Past Medical History: Organic brain syndrome Hypertensive cardiovascular disease Benign prostatic hypertrophy Gout Low back pain Osteoporosis Recurrent urinary tract infections Medications noted Allergies: No known drug allergies. Remains on Bipap,FIO2 100% CXR worsening infiltrates Objective: Vital signs noted PE: Deferred Covid 19 Laboratory noted Chest x-ray: bilateral infiltrates. 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
[2020-02-26 16:00] VITALS: BP 127/69
--- NOTE | 2020-02-26 17:21 | NUR ---
NURSE NOTES: Dr Lam is aware about plt 104 and need parameter for Lovenox, ordered hold for plt<60, noted and carried out. will continue to monitor.
[2020-02-26] MEDS: Enoxaparin 40mg Inj SUBQ SCH (17:25)
--- NOTE | 2020-02-26 18:07 | NUR ---
NURSE NOTES: Dr Escobar visited pt and is aware about RR 45+, ordered change bipap to 20/9 fio2 100%, noted and carried out. RT is aware. will continue to monitor.
--- NOTE | 2020-02-26 19:05 | NUR ---
Received pt from bethel Elena RN. Pt is lying in bed, tachypneic, on Bipap 20/9, FiO2 100% saturating 92-98%. IV on R forearm 20G is intact and patent running 1/2NS 100cc/hr. Recent labs, medication and MD orders review. Bed is locked and in lowest position, bed alarm on, call light is with the pt. Will continue to closely monitor pt. Will continue with the plan of care.
--- NOTE | 2020-02-26 19:19 | NUR ---
NURSE HAND-OFF REPORT: Important Events on Shift:RR 45+, BIPAP 20/9 FIO2 100% NOW. ABG morning. Patient Status: Diet: Pending Orders: Pending Results/Labs: Pending MD notification: Latest Vital Signs: Temperature 98.1 , Pulse 96 , B/P 115 /66 , Respiratory Rate 33 , O2 SAT 98 , Non-Rebreather, O2 Flow Rate 100.0 . Vital Sign Comment: EKG Rhythm: Sinus Tachycardia Rhythm change?: N MD Notified?: - MD Response: Latest Myers Fall Score: 55 Fall Risk: High Risk Safety Measures: Call light , Bed Alarm Zone 1, Side Rails Side Rails x3, Bed position Low and Locked. Fall Precautions: Yellow Socks Yellow Gown Door Sign Patient Fall Education Report given to . pt is awake with RR 40 SPO2 98% HR 91. Endorsed plan of care, endorsed to monitor RR.
[2020-02-26 20:00] VITALS: BP 152/73
--- NOTE | 2020-02-26 23:10 | NUR ---
NURSE NOTES: Pt is restless, and anxious. O2 saturation would decrease to 90. vital signs are stable. PRN Ativan IV administered per order. Will continue to closely monitor pt.
[2020-02-27] VITALS: BP 140/80
[2020-02-27] MEDS: HYDROcodone/Acetamin 5/325 tab ORAL PRN (03:28)
--- NOTE | 2020-02-27 03:40 | NUR ---
NURSE NOTES: Pt is restless, moaning, constant facial grimacing. PRN [place] for pain was administered per order. Will reassess the pt.
[2020-02-27 04:00] VITALS: BP 145/92
--- NOTE | 2020-02-27 07:00 | NUR ---
NURSE HAND-OFF REPORT: Important Events on Shift:None Patient Status: Full code Diet: Reg. Mech soft-chopped Pending Orders: N Pending Results/Labs:ABG Pending MD notification:N Latest Vital Signs: Temperature 98.4 , Pulse 107 , B/P 145 /92 , Respiratory Rate 30 , O2 SAT 96 , Non-Rebreather, O2 Flow Rate 100.0 . Vital Sign Comment: stable EKG Rhythm: Sinus Tachycardia Rhythm change?: N MD Notified?: - MD Response: Latest Myers Fall Score: 55 Fall Risk: High Risk Safety Measures: Call light , Bed Alarm Zone 1, Side Rails Side Rails x3, Bed position Low and Locked. Fall Precautions: Yellow Socks Yellow Gown Door Sign Patient Fall Education Report given to PIERCE Maciel.
--- NOTE | 2020-02-27 07:20 | NUR ---
NURSE NOTES: Received report from PIERCE Valdovinos. Patient in bed resting, no active s/s cardiac distress noticed. Patient on BIPAP 20/9 Fio2 100%. O2 sat 97%, Patient confused, restlessness, moaning, open eyes spontaneously. Patient On external catheter, draining well to gravity at this time. IV on right FA 20G, asymptomatic, patent, intact. IVF running as prescribed rate. Patient unable to tolerate PO at this time. Will follow up with MD. Bed in lowest position, side rails upx3, call light within reach, bed alarm on, Will continue to monitor.
--- NOTE | 2020-02-27 07:21 | NUR ---
NURSE NOTES: Patient on Bilateral soft wrist restraints. cap refill <3 sec, able to move.
[2020-02-27 08:00] VITALS: BP 158/83
[2020-02-27] MEDS: dexAMETHasone 10mg/ml Inj IV SCH (08:44)
[2020-02-27] MEDS: Docusate 100mg cap ORAL SCH ×2 (08:44→20:27)
--- NOTE | 2020-02-27 08:44 | NUR ---
NURSE NOTES: Patient unable to tolerate PO med at this time, patient on BIPAP, restless, will inform MD.
--- NOTE | 2020-02-27 09:03 | NUR ---
RD ASSESSMENT & RECOMMENDATIONS SEE CARE ACTIVITY FOR COMPLETE ASSESSMENT DAILY ESTIMATED NEEDS: Needs based on Pulmonary/ 80.5kg 25-30 kcals/kg total kcals 1-1.5 g protein/kg 80-120 g total protein 25-30 mL/kg total fluid mLs NUTRITION DIAGNOSIS: Inadequate oral intake R/T respiratory status as evidenced by pt covid-19 ++, on BIPAP, unable to tolerate/ refusing all meals at this time. CURRENT DIET:REGULAR, finely chopped PO DIET RECOMMENDATIONS: IF ABLE TO TOLERATE -> regular/ texture per COMPLETIONS ENGINEER + Ensure Enlive @ all meals ADDITIONAL RECOMMENDATIONS: * Calibrated bedscale wt * Monitor PO tolerance and acceptance on continuous BIPAP, refused all meals x 5 days consider NONORAL FEEDS w/ medically appropriate w/ BIPAP * Monitor for hypoglycemia w/ poor PO
--- NOTE | 2020-02-27 10:27 | NUR ---
NURSE NOTES: Paged Dr. Escobar regarding result of ABG today. Awaiting for callback, Will continue to monitor.
--- NOTE | 2020-02-27 11:07 | NUR ---
NURSE NOTES: Per Dr. Escobar, transfer patient to ICU. Order noted, entered, carried out. Service Cashier made aware.
--- NOTE | 2020-02-27 11:10 | NUR ---
NURSE NOTES: Per Dr. Escobar, change BIPAP setting to 22/10, ABG in 2 hours. IVF change to 40ml/h, one time dose of Lasix. Order noted, entered, carried out.
--- NOTE | 2020-02-27 11:31 | Infectious Diseases Prog Note ---
Assessment/Plan Assessment/Plan antibiotics : none A 1. covid 19 pneumonia on 100 % Fi O2, 96 % saturation 2. hypertension 3. renal failure P 1. continue dexamethasone day 6 2. start ivermectin 3. continue isolation Subjective ROS Limited/Unobtainable: Yes Allergies: Coded Allergies: No Known Allergies (Unverified , 02/14/19) Objective Last 24 Hour Vital Signs Date Time Temp Pulse Resp B/P (MAP) Pulse Ox O2 Delivery O2 Flow Rate FiO2 02/27/20 08:00 97.5 102 32 158/83 (108) 99 02/27/20 08:00 Bi-pap 15.0 02/27/20 08:00 100 02/27/20 08:00 97 02/27/20 07:03 98 43 95 100 02/27/20 07:02 97 Bi-Pap 100 02/27/20 04:00 Bi-pap 100.0 02/27/20 04:00 98.4 102 30 145/92 (109) 96 02/27/20 04:00 100 02/27/20 04:00 107 02/27/20 03:00 95 38 95 100 02/27/20 00:00 Bi-pap 100.0 02/27/20 00:00 103 02/27/20 00:00 98.6 108 30 140/80 (100) 94 02/27/20 00:00 100 02/26/20 23:36 92 34 95 100 02/26/20 23:06 97 32 140/86 93 02/26/20 20:00 92 02/26/20 20:00 Bi-pap 100.0 02/26/20 20:00 96.5 97 37 152/73 (99) 98 02/26/20 19:15 97 Bi-Pap 100 02/26/20 19:15 95 38 97 100 02/26/20 18:00 100 02/26/20 17:36 96 33 115/66 98 02/26/20 17:06 97 29 127/69 98 02/26/20 16:00 100 02/26/20 16:00 98.1 97 29 127/69 (88) 98 02/26/20 16:00 Bi-pap 100.0 02/26/20 15:39 101 02/26/20 15:22 99 47 100 100 02/26/20 12:00 Bi-pap 100.0 02/26/20 12:00 100 02/26/20 12:00 98.1 106 46 115/71 (86) 99 02/26/20 11:32 107 02/26/20 11:29 125 30 96 100 Height (Feet): 5 Height (Inches): 10.00 Weight (Pounds): 178 HEENT: other - on bipap Laboratory Tests Test 02/27/20 04:00 Arterial Blood pH 7.479 (7.350-7.450) Arterial Blood Partial Pressure CO2 26.3 mmHg (35.0-45.0) L Arterial Blood Partial Pressure O2 51.9 mmHg (75.0-100.0) L Arterial Blood HCO3 19.1 mmol/L (22.0-26.0) L Arterial Blood Oxygen Saturation 87.3 % (95-100) *L Arterial Blood Base Excess -2.8 (-2-2) L Home Test Positive Current Medications Medications (Trade) Dose Ordered Sig/Gabi Route PRN Reason Start Time Stop Time Status Last Admin Dose Admin Acetaminophen (Tylenol) 650 mg Q4H PRN ORAL Mild Pain (Pain Scale 1-3) 02/22/20 16:15 03/23/20 16:14 02/26/20 09:03 Acetaminophen (Tylenol) 650 mg Q4H PRN ORAL Temp >100.5 02/22/20 16:15 03/23/20 16:14 Acetaminophen/ Hydrocodone Bitart ([place] 5/325) 1 tab Q6H PRN ORAL pain 4-10 02/23/20 09:00 03/01/20 08:59 02/27/20 03:28 Albuterol Sulfate (Proventil MDI) 2 puff Q4H PRN INH Shortness of Breath 02/22/20 15:15 05/22/20 15:14 Dexamethasone Sodium Phosphate (Decadron 10mg/ ml Inj) 6 mg DAILY IV 02/23/20 09:00 03/02/20 09:01 02/27/20 08:44 Docusate Sodium (Colace) 100 mg EVERY 12 HOURS ORAL 02/22/20 21:00 03/23/20 20:59 02/26/20 09:01 Enoxaparin Sodium (Lovenox) 40 mg Q24H SUBQ 02/22/20 18:00 05/22/20 17:59 02/26/20 17:25 Furosemide (Lasix) 20 mg ONCE IV 02/27/20 11:15 02/27/20 14:00 02/27/20 11:20 Lorazepam (Ativan 2mg/ml 1ml) 1 mg Q6H PRN IV Agitation 02/23/20 21:15 03/01/20 21:14 02/26/20 23:06 Ondansetron HCl (Zofran) 4 mg Q6H PRN IVP Nausea & Vomiting 02/22/20 16:15 03/23/20 16:14 Pantoprazole (Protonix) 40 mg DAILY ORAL 02/23/20 09:00 03/24/20 08:59 02/26/20 09:02 Sodium Chloride 1,000 ml @ 40 mls/hr Q24H IV 02/22/20 18:00 03/23/20 17:59 02/27/20 03:03 Thien Saucedo MD Feb 27, 2020 11:31
--- NOTE | 2020-02-27 11:57 | NUR ---
NURSE NOTES: Dr. Saucedo made aware patient unable to tolerate PO med, per MD discontinue Stromectol once. Order noted, entered, carried out.
[2020-02-27 12:00] VITALS: BP 138/100
--- NOTE | 2020-02-27 12:30 | NUR ---
NURSE NOTES: Dr. Bermudez at the nursing station, made aware of pink colored urine. No new order received at this time. Will continue to monitor.
--- NOTE | 2020-02-27 13:07 | NUR ---
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 97.5 HR 102 RR 43 B/P 158/83 BIPAP 20/9 FIO2 100% IS: IVF NS @ 40ML/HR LASIX IV DECADRON IV LOVENOX SUB STEP DOWN STATUS
--- NOTE | 2020-02-27 13:49 | General Progress Note ---
Subjective Allergies: Coded Allergies: No Known Allergies (Unverified , 02/14/19) Subjective Confused. Objective Last 24 Hour Vital Signs Date Time Temp Pulse Resp B/P (MAP) Pulse Ox O2 Delivery O2 Flow Rate FiO2 02/27/20 12:00 100 02/27/20 12:00 97.8 102 30 138/100 (113) 99 02/27/20 12:00 Bi-pap 15.0 02/27/20 08:00 97.5 102 32 158/83 (108) 99 02/27/20 08:00 Bi-pap 15.0 02/27/20 08:00 100 02/27/20 08:00 97 02/27/20 07:03 98 43 95 100 02/27/20 07:02 97 Bi-Pap 100 02/27/20 04:00 Bi-pap 100.0 02/27/20 04:00 98.4 102 30 145/92 (109) 96 02/27/20 04:00 100 02/27/20 04:00 107 02/27/20 03:00 95 38 95 100 02/27/20 00:00 Bi-pap 100.0 02/27/20 00:00 103 02/27/20 00:00 98.6 108 30 140/80 (100) 94 02/27/20 00:00 100 02/26/20 23:36 92 34 95 100 02/26/20 23:06 97 32 140/86 93 02/26/20 20:00 92 02/26/20 20:00 Bi-pap 100.0 02/26/20 20:00 96.5 97 37 152/73 (99) 98 02/26/20 19:15 97 Bi-Pap 100 02/26/20 19:15 95 38 97 100 02/26/20 18:00 100 02/26/20 17:36 96 33 115/66 98 02/26/20 17:06 97 29 127/69 98 02/26/20 16:00 100 02/26/20 16:00 98.1 97 29 127/69 (88) 98 02/26/20 16:00 Bi-pap 100.0 02/26/20 15:39 101 02/26/20 15:22 99 47 100 100 Intake and Output 02/26/20 02/27/20 19:00 07:00 Intake Total 1200 ml 895 ml Output Total 550 ml Balance 1200 ml 345 ml IV Total 1200 ml 895 ml Output Urine Total 550 ml # Voids 3 Laboratory Tests 02/27/20 04:00: Arterial Blood pH 7.479H, Arterial Blood Partial Pressure CO2 26.3L, Arterial Blood Partial Pressure O2 51.9L, Arterial Blood HCO3 19.1L, Arterial Blood Oxygen Saturation 87.3*L, Arterial Blood Base Excess -2.8L, Home Test Positive Height (Feet): 5 Height (Inches): 10.00 Weight (Pounds): 178 Objective On BIPAP CV RR Lungs CTA Abd SNT BS + E No CCE Assessment/Plan Assessment/Plan: Covid 19 - per ID Volume depletion -IVF. Needs ICU! Still Hypoxemic pO2 65 on FiO2 100% Yumi Lam MD Feb 27, 2020 13:49
--- NOTE | 2020-02-27 14:16 | NUR ---
NURSE NOTES: Patient restless but weak to pull out devices. No need of non-restraints at this time. Wrist restraints removed.
--- NOTE | 2020-02-27 15:26 | NUR ---
NURSE NOTES: Dr. Lam made aware patient was having 13 seconds of Afib with RVR when cleaned up. Now S with HR 91, No new order received at this time. Will continue to monitor.
[2020-02-27 16:00] VITALS: BP 141/73
[2020-02-27] MEDS: Enoxaparin 40mg Inj SUBQ SCH (17:00)
--- NOTE | 2020-02-27 17:00 | NUR ---
NURSE NOTES: Patient was having pink urine, Plt drop from 335 to 104, Lovenox not given at this time.
--- NOTE | 2020-02-27 17:41 | NUR ---
NURSE NOTES: Dr. Escobar made aware of result of ABG , pt was on BIPAP 22/10 Fio2 100%. No new order received at this time. Will continue to monitor.
--- NOTE | 2020-02-27 17:43 | NUR ---
NURSE NOTES: Per Dr. Escobar, try to put patient on Prone position. No new order received at this time.
--- NOTE | 2020-02-27 17:45 | NUR ---
NURSE NOTES: RT Daphnie made aware of MD recommendation of prone position.
--- NOTE | 2020-02-27 18:38 | Pulmonology Progress Note ---
Subjective ROS Limited/Unobtainable: Yes Constitutional: Denies: fever Allergies: Coded Allergies: No Known Allergies (Unverified , 02/14/19) Objective Last 24 Hour Vital Signs Date Time Temp Pulse Resp B/P (MAP) Pulse Ox O2 Delivery O2 Flow Rate FiO2 02/27/20 16:00 Bi-pap 15.0 02/27/20 16:00 100 02/27/20 16:00 120 02/27/20 16:00 97.9 89 40 141/73 (95) 97 02/27/20 15:08 104 45 92 100 02/27/20 12:00 100 02/27/20 12:00 113 02/27/20 12:00 97.8 102 30 138/100 (113) 99 02/27/20 12:00 Bi-pap 15.0 02/27/20 11:06 101 46 97 100 02/27/20 08:00 97.5 102 32 158/83 (108) 99 02/27/20 08:00 Bi-pap 15.0 02/27/20 08:00 100 02/27/20 08:00 97 02/27/20 07:03 98 43 95 100 02/27/20 07:02 97 Bi-Pap 100 02/27/20 04:00 Bi-pap 100.0 02/27/20 04:00 98.4 102 30 145/92 (109) 96 02/27/20 04:00 100 02/27/20 04:00 107 02/27/20 03:00 95 38 95 100 02/27/20 00:00 Bi-pap 100.0 02/27/20 00:00 103 02/27/20 00:00 98.6 108 30 140/80 (100) 94 02/27/20 00:00 100 02/26/20 23:36 92 34 95 100 02/26/20 23:06 97 32 140/86 93 02/26/20 20:00 92 02/26/20 20:00 Bi-pap 100.0 02/26/20 20:00 96.5 97 37 152/73 (99) 98 02/26/20 19:15 97 Bi-Pap 100 02/26/20 19:15 95 38 97 100 Intake and Output 02/26/20 02/27/20 19:00 07:00 Intake Total 1200 ml 895 ml Output Total 550 ml Balance 1200 ml 345 ml IV Total 1200 ml 895 ml Output Urine Total 550 ml # Voids 3 Laboratory Tests 02/27/20 04:00: Arterial Blood pH 7.479H, Arterial Blood Partial Pressure CO2 26.3L, Arterial Blood Partial Pressure O2 51.9L, Arterial Blood HCO3 19.1L, Arterial Blood Oxygen Saturation 87.3*L, Arterial Blood Base Excess -2.8L, Home Test Positive 02/27/20 14:08: Arterial Blood pH 7.479H, Arterial Blood Partial Pressure CO2 24.7*L, Arterial Blood Partial Pressure O2 50.3L, Arterial Blood HCO3 17.9*L, Arterial Blood Oxygen Saturation 87.1*L, Arterial Blood Base Excess -3.5L, Home Test Positive Current Medications Medications (Trade) Dose Ordered Sig/Gabi Route PRN Reason Start Time Stop Time Status Last Admin Dose Admin Acetaminophen (Tylenol) 650 mg Q4H PRN ORAL Mild Pain (Pain Scale 1-3) 02/22/20 16:15 03/23/20 16:14 02/26/20 09:03 Acetaminophen (Tylenol) 650 mg Q4H PRN ORAL Temp >100.5 02/22/20 16:15 03/23/20 16:14 Acetaminophen/ Hydrocodone Bitart ([place] 5/325) 1 tab Q6H PRN ORAL pain 4-10 02/23/20 09:00 03/01/20 08:59 02/27/20 03:28 Albuterol Sulfate (Proventil MDI) 2 puff Q4H PRN INH Shortness of Breath 02/22/20 15:15 05/22/20 15:14 Dexamethasone Sodium Phosphate (Decadron 10mg/ ml Inj) 6 mg DAILY IV 02/23/20 09:00 03/02/20 09:01 02/27/20 08:44 Docusate Sodium (Colace) 100 mg EVERY 12 HOURS ORAL 02/22/20 21:00 03/23/20 20:59 02/26/20 09:01 Enoxaparin Sodium (Lovenox) 40 mg Q24H SUBQ 02/22/20 18:00 05/22/20 17:59 02/26/20 17:25 Lorazepam (Ativan 2mg/ml 1ml) 1 mg Q6H PRN IV Agitation 02/23/20 21:15 03/01/20 21:14 02/26/20 23:06 Ondansetron HCl (Zofran) 4 mg Q6H PRN IVP Nausea & Vomiting 02/22/20 16:15 03/23/20 16:14 Pantoprazole (Protonix) 40 mg DAILY ORAL 02/23/20 09:00 03/24/20 08:59 02/26/20 09:02 Sodium Chloride 1,000 ml @ 40 mls/hr Q24H IV 02/22/20 18:00 03/23/20 17:59 02/27/20 03:03 Assessment/Plan Assessment/Plan Pulmonary Progress Note HPI: Patient is an 89-year-old man, [facility] Resident admitted with Covid 19 Pneumonia,had been noted tohave weakness and shortness of breath. Has been positive for Covid19 for several weeks Past Medical History: Organic brain syndrome Hypertensive cardiovascular disease Benign prostatic hypertrophy Gout Low back pain Osteoporosis Recurrent urinary tract infections Medications noted Allergies: No known drug allergies. Remains on Bipap-setting increased,FIO2 100% CXR worsening infiltrates Objective: Vital signs noted PE: Deferred Covid 19 Laboratory noted Chest x-ray: bilateral infiltrates. ASSESSMENT: COVID-19 pneumonia Hypoxic Respiratory Failure Dehydration Malnutrition Organic brain syndrome Hypertensive cardiovascular disease Benign prostatic hypertrophy Gout Low back pain Osteoporosis Recurrent urinary tract infections PLAN: TF ICU once bed available BiPAP PRN ABG PRN Bronchodilators Decadron/ID PPX EDUCATIONAL ADVISER Medications Monitor labs Lionel Escobar MD Feb 27, 2020 18:38
--- NOTE | 2020-02-27 19:07 | NUR ---
NURSE HAND-OFF REPORT: Important Events on Shift: Transfer Patient to ICU per Dr. Escobar, no intubation needed at this time, station supervisor aware of transfer. Patient Status: guarded Diet: NPO Pending Orders: transfer Pending Results/Labs:NA Pending MD notification:NA Latest Vital Signs: Temperature 97.9 , Pulse 89 , B/P 141 /73 , Respiratory Rate 40 , O2 SAT 97 , Non-Rebreather, O2 Flow Rate 15.0 . Vital Sign Comment: stable EKG Rhythm: Sinus Tachycardia Rhythm change?: N MD Notified?: - MD Response: Latest Myers Fall Score: 55 Fall Risk: High Risk Safety Measures: Call light , Bed Alarm Zone 1, Side Rails Side Rails x3, Bed position Low and Locked. Fall Precautions: Yellow Socks Yellow Gown Door Sign Patient Fall Education Report given to PIERCE Lopez.
--- NOTE | 2020-02-27 19:10 | NUR ---
NURSE NOTES: pt report received from Janell PELAYO. pt remains stable. pt is alert and oriented times 1 , resposive to light tactile stimuli. pt is on BIPAP sating 98% O2. no other acute resp distress noted. pt is on guest request runner showing SR, 90. no other distress noted. pt bed is low, locked, armed, call light within reach, bed rails up times 3. will follow plan of care.
[2020-02-27 20:00] VITALS: BP 150/82
--- NOTE | 2020-02-27 21:30 | NUR ---
NURSE NOTES: repositioned pt with healthcare analyst. BIPAP still on.
--- NOTE | 2020-02-27 23:23 | NUR ---
NURSE NOTES: RT Reyes in pts room assessing pt.
[2020-02-28] VITALS: BP 142/81
--- NOTE | 2020-02-28 02:35 | NUR ---
NURSE NOTES: BIPAP still on. pt sating 90% O2 Resp rate at 35.
[2020-02-28 04:00] VITALS: BP 154/73
--- NOTE | 2020-02-28 05:34 | NUR ---
NURSE NOTES: pts 1/2 NS IV fluids running. pts condition remains unchanged.
[2020-02-28 05:47] LABS: BASOPHILS % (AUTO) 2.6 % (0.0-2.0); HEMATOCRIT 41.1 % (42.0-52.0); HEMOGLOBIN 13.4 G/DL (14.2-18.0); LYMPHOCYTES % (AUTO) 23.5 % (20.0-45.0); MEAN CORPUSCULAR VOLUME 82 FL (80-99); MONOCYTES % (AUTO) 5.6 % (1.0-10.0); NEUTROPHILS % (AUTO) 68.3 % (45.0-75.0); PLATELET COUNT 292 K/UL (150-450); RED BLOOD COUNT 5.03 M/UL (4.70-6.10); RED CELL DISTRIBUTION WIDTH 14.2 % (11.6-14.8)
--- NOTE | 2020-02-28 07:10 | NUR ---
NURSE HAND-OFF REPORT: Important Events on Shift:[monitor. BIPAP] Patient Status: [unstable. still on BIPAP] Diet: [NPO] Pending Orders: [NA] Pending Results/Labs:[NA] Pending MD notification:[BALFE] Latest Vital Signs: Temperature 97.9 , Pulse 93 , B/P 154 /73 , Respiratory Rate 40 , O2 SAT 95 , Non-Rebreather, O2 Flow Rate 15.0 . Vital Sign Comment: [monitor respirations and O2 sat ] EKG Rhythm: Sinus Tachycardia Rhythm change?: N MD Notified?: - MD Response: Latest Myers Fall Score: 55 Fall Risk: High Risk Safety Measures: Call light , Bed Alarm Zone 1, Side Rails Side Rails x3, Bed position Low and Locked. Fall Precautions: Yellow Socks Yellow Gown Door Sign Patient Fall Education Report given to [KUNAL Anthony RN].
--- NOTE | 2020-02-28 07:21 | NUR ---
NURSE NOTES: Received report from PIERCE Sun. Patient is resting in bed, in stable condition. No s/sx of SOB, breathing is even and unlabored, on bipap settings 20/12 FiO2 100% SpO2 92%. Observed no presence of pain or discomfort at this time. Bed is in lowest position, brakes engaged. Call light is kept within easy reach. Will continue to monitor patient.
[2020-02-28 08:00] VITALS: BP 138/88
--- NOTE | 2020-02-28 08:00 | NUR ---
NURSE NOTES: Patient noted restless, on BiPAP 20/10 FiO2 100% SpO2 ranges from 80 - 98%. Contacted Dr. Escobar and reported assessments and inquired if would like ABG. Dr. Escoabr acknowledged and gave no new orders. Noted.
--- NOTE | 2020-02-28 08:30 | NUR ---
NURSE NOTES: Reviewing Dr. Escobar's notes regarding to transfer to ICU when bed available, also noted with order to transfer to ICU. Called Dr. Escobar and left message to follow up. Awaiting call back. Will continue to monitor patient.
[2020-02-28] MEDS: dexAMETHasone 10mg/ml Inj IV SCH (08:40)
[2020-02-28] MEDS: Docusate 100mg cap ORAL SCH (08:41)
[2020-02-28] MEDS ORDERED: 1/2 NS 1000ml IV ONE (09:15)
[2020-02-28] MEDS ORDERED: Tubing IV Secondary IV ONE (09:15)
[2020-02-28] MEDS ORDERED: NS 275ml ONE (09:15)
--- NOTE | 2020-02-28 09:17 | Infectious Diseases Prog Note ---
Assessment/Plan Assessment/Plan IMPRESSION: COVID-19 pneumonia. Hypoxemic respiratory failure. Lymphocytopenia, Lactic acidosis, Acute renal failure, Hypertension, Osteoporosis, Spinal stenosis. RECOMMENDATION: Continue dexamethasone Repeat CXR Start on Rocephin Likely needs intubation Subjective ROS Limited/Unobtainable: Yes Respiratory: Reports: other - worsening of respiraory funtion Neurologic: Reports: confusion, other - on restraint Allergies: Coded Allergies: No Known Allergies (Unverified , 02/14/19) Objective Last 24 Hour Vital Signs Date Time Temp Pulse Resp B/P (MAP) Pulse Ox O2 Delivery O2 Flow Rate FiO2 02/28/20 08:00 100 02/28/20 08:00 97.7 94 36 138/88 (105) 95 02/28/20 08:00 Bi-pap 15.0 02/28/20 07:27 92 39 96 100 02/28/20 07:27 96 Bi-Pap 100 02/28/20 04:00 Bi-pap 15.0 02/28/20 04:00 104 02/28/20 04:00 97.9 93 40 154/73 (100) 95 02/28/20 04:00 100 02/28/20 03:00 60 30 92 100 02/28/20 00:00 102 02/28/20 00:00 97.5 105 40 142/81 (101) 97 02/28/20 00:00 100 02/28/20 00:00 Bi-pap 15.0 02/27/20 23:10 86 32 98 100 02/27/20 20:00 Bi-pap 15.0 02/27/20 20:00 100 02/27/20 20:00 97.5 104 40 150/82 (104) 97 02/27/20 20:00 108 02/27/20 19:00 94 Bi-Pap 100 02/27/20 19:00 103 37 94 100 02/27/20 16:00 Bi-pap 15.0 02/27/20 16:00 100 02/27/20 16:00 120 02/27/20 16:00 97.9 89 40 141/73 (95) 97 02/27/20 15:08 104 45 92 100 02/27/20 12:00 100 02/27/20 12:00 113 02/27/20 12:00 97.8 102 30 138/100 (113) 99 02/27/20 12:00 Bi-pap 15.0 02/27/20 11:06 101 46 97 100 Height (Feet): 5 Height (Inches): 10.00 Weight (Pounds): 178 HEENT: mucous membranes moist Respiratory/Chest: respiratory distress, other - on BIPAP, QVI3=473% Cardiovascular: normal rate Abdomen: soft, non tender Extremities: no edema Neurologic/Psychiatric: disoriented Laboratory Tests Test 02/27/20 14:08 02/28/20 04:05 Arterial Blood pH 7.479 (7.350-7.450) Arterial Blood Partial Pressure CO2 24.7 mmHg (35.0-45.0) *L Arterial Blood Partial Pressure O2 50.3 mmHg (75.0-100.0) L Arterial Blood HCO3 17.9 mmol/L (22.0-26.0) *L Arterial Blood Oxygen Saturation 87.1 % (95-100) *L Arterial Blood Base Excess -3.5 (-2-2) L Home Test Positive White Blood Count 4.0 K/UL (4.8-10.8) L Red Blood Count 5.03 M/UL (4.70-6.10) Hemoglobin 13.4 G/DL (14.2-18.0) L Hematocrit 41.1 % (42.0-52.0) L Mean Corpuscular Volume 82 FL (80-99) Mean Corpuscular Hemoglobin 26.6 PG (27.0-31.0) L Mean Corpuscular Hemoglobin Concent 32.5 G/DL (32.0-36.0) Red Cell Distribution Width 14.2 % (11.6-14.8) Platelet Count 292 K/UL (150-450) Mean Platelet Volume 6.3 FL (6.5-10.1) L Neutrophils (%) (Auto) 68.3 % (45.0-75.0) Lymphocytes (%) (Auto) 23.5 % (20.0-45.0) Monocytes (%) (Auto) 5.6 % (1.0-10.0) Eosinophils (%) (Auto) 0.0 % (0.0-3.0) Basophils (%) (Auto) 2.6 % (0.0-2.0) H Sodium Level Pending Potassium Level Pending Chloride Level Pending Carbon Dioxide Level Pending Blood Urea Nitrogen Pending Creatinine Pending Estimat Glomerular Filtration Rate Pending Glucose Level Pending Calcium Level Pending Current Medications Medications (Trade) Dose Ordered Sig/Gabi Route PRN Reason Start Time Stop Time Status Last Admin Dose Admin Acetaminophen (Tylenol) 650 mg Q4H PRN ORAL Mild Pain (Pain Scale 1-3) 02/22/20 16:15 03/23/20 16:14 02/26/20 09:03 Acetaminophen (Tylenol) 650 mg Q4H PRN ORAL Temp >100.5 02/22/20 16:15 03/23/20 16:14 Acetaminophen/ Hydrocodone Bitart ([place] 5/325) 1 tab Q6H PRN ORAL pain 4-10 02/23/20 09:00 03/01/20 08:59 02/27/20 03:28 Albuterol Sulfate (Proventil MDI) 2 puff Q4H PRN INH Shortness of Breath 02/22/20 15:15 05/22/20 15:14 Dexamethasone Sodium Phosphate (Decadron 10mg/ ml Inj) 6 mg DAILY IV 02/23/20 09:00 03/02/20 09:01 02/28/20 08:40 Docusate Sodium (Colace) 100 mg EVERY 12 HOURS ORAL 02/22/20 21:00 03/23/20 20:59 02/26/20 09:01 Enoxaparin Sodium (Lovenox) 40 mg Q24H SUBQ 02/22/20 18:00 05/22/20 17:59 02/26/20 17:25 Lorazepam (Ativan 2mg/ml 1ml) 1 mg Q6H PRN IV Agitation 02/23/20 21:15 03/01/20 21:14 02/26/20 23:06 Ondansetron HCl (Zofran) 4 mg Q6H PRN IVP Nausea & Vomiting 02/22/20 16:15 03/23/20 16:14 Pantoprazole (Protonix) 40 mg DAILY ORAL 02/23/20 09:00 03/24/20 08:59 02/26/20 09:02 Sodium Chloride 1,000 ml @ 40 mls/hr Q24H IV 02/22/20 18:00 03/23/20 17:59 02/28/20 05:06 Pancho Lr MD Feb 28, 2020 09:17
--- NOTE | 2020-02-28 09:30 | NUR ---
NURSE NOTES: Second call to Dr. Escobar regarding follow up to transfer to ICU and intubation, also left message regarding patient's assessments; patient is restless, on BiPap 20/10 FiO2 100%, SpO2 80-95%. Received voicemail, left message of situation. Awaiting call back.
[2020-02-28] MEDS ORDERED: cefTRIAXone 1 GM in D5W 55 ML IVPB SCH (10:00)
[2020-02-28] MEDS: LORazepam Inj 2mg/ml 1ml IV PRN (10:34)
--- NOTE | 2020-02-28 10:40 | NUR ---
NURSE NOTES: Patient's left fingers noted purple, no capillary refill noted, patient noted restless, respiratory rate 36 to 56. Still on Bipap 20/10 FiO2 100% SpO2 88-94%. Contacted and informed Dr. Lam of assessments. Dr. Esposito acknowledged and ordered STAT ABG and to call him for results. Order entered, noted, and carried out. Will continue to monitor patient. Addendum: 02/28/20 at 1100 by JAYCEE TILLEY RN NURSE NOTES: Correction 22/10 FiO2 100%
--- NOTE | 2020-02-28 11:00 | NUR ---
NURSE NOTES: Paged Dr. Lam via telephone to report ABG results as instructed. Awaiting call back. Will continue to monitor patient.
[2020-02-28 11:04] VITALS: BP 127/87
[2020-02-28 11:28] LABS: CALCIUM 8.1 MG/DL (8.5-10.1); CREATININE 1.4 MG/DL (0.55-1.30); POTASSIUM 4.5 MMOL/L (3.5-5.1)
--- NOTE | 2020-02-28 11:30 | NUR ---
RADIOLOGY DEPT., CHEST X-RAY DONE.-P.DYE
--- NOTE | 2020-02-28 12:30 | NUR ---
NURSE NOTES: Patient noted altered mental status. Rapid response team called. Patient on Bipap 22/10 FiO2 100%, difficult to awaken. Dr. Lam called nurse station. Made aware of patient's ABG results today, purple fingers, patient's altered mental status and rapid response team in patient's room right now. Dr. Lam acknowledged and ordered to transfer patient to ICU and intubate STAT. Order entered, noted, and carried out. Nurse zone supervisor firearms made aware.
--- NOTE | 2020-02-28 13:05 | Diagnostic Imaging Report ---
Indication: Shortness of breath Technique: XRAY Chest 1v Comparison: 02/26/2020 Findings: Heart size and mediastinal contours stable. Extensive bilateral infiltrates are again seen, not significant change compared to the prior exam. Possible small left pleural effusion not excluded. No pneumothorax. Osseous structures stable. Impression: Bilateral infiltrates, not significantly changed compared to the prior exam.
--- NOTE | 2020-02-28 13:20 | NUR ---
NURSE NOTES: Dr. Houston at bedside. Patient is for intubation.
--- NOTE | 2020-02-28 13:25 | NUR ---
CODE BLUE: See Code sheet which remains on paper. Dr. Houston at bedside, leading the code blue.
--- NOTE | 2020-02-28 13:37 | General Progress Note ---
Subjective Allergies: Coded Allergies: No Known Allergies (Unverified , 02/14/19) Subjective Patient in ICU being coded. Objective Last 24 Hour Vital Signs Date Time Temp Pulse Resp B/P (MAP) Pulse Ox O2 Delivery O2 Flow Rate FiO2 02/28/20 11:22 95 34 97 100 02/28/20 11:04 100 25 127/87 96 02/28/20 10:34 103 36 130/82 95 02/28/20 08:00 100 02/28/20 08:00 102 02/28/20 08:00 97.7 94 36 138/88 (105) 95 02/28/20 08:00 Bi-pap 15.0 02/28/20 07:27 92 39 96 100 02/28/20 07:27 96 Bi-Pap 100 02/28/20 04:00 Bi-pap 15.0 02/28/20 04:00 104 02/28/20 04:00 97.9 93 40 154/73 (100) 95 02/28/20 04:00 100 02/28/20 03:00 60 30 92 100 02/28/20 00:00 102 02/28/20 00:00 97.5 105 40 142/81 (101) 97 02/28/20 00:00 100 02/28/20 00:00 Bi-pap 15.0 02/27/20 23:10 86 32 98 100 02/27/20 20:00 Bi-pap 15.0 02/27/20 20:00 100 02/27/20 20:00 97.5 104 40 150/82 (104) 97 02/27/20 20:00 108 02/27/20 19:00 94 Bi-Pap 100 02/27/20 19:00 103 37 94 100 02/27/20 16:00 Bi-pap 15.0 02/27/20 16:00 100 02/27/20 16:00 120 02/27/20 16:00 97.9 89 40 141/73 (95) 97 02/27/20 15:08 104 45 92 100 Intake and Output 02/27/20 02/28/20 19:00 07:00 Intake Total 100 ml 700 ml Output Total 1000 ml 900 ml Balance -900 ml -200 ml IV Total 100 ml 700 ml Output Urine Total 1000 ml 900 ml Laboratory Tests 02/27/20 14:08: Arterial Blood pH 7.479H, Arterial Blood Partial Pressure CO2 24.7*L, Arterial Blood Partial Pressure O2 50.3L, Arterial Blood HCO3 17.9*L, Arterial Blood Oxygen Saturation 87.1*L, Arterial Blood Base Excess -3.5L, Home Test Positive 02/28/20 04:05: White Blood Count 4.0L, Red Blood Count 5.03, Hemoglobin 13.4L, Hematocrit 41.1L , Mean Corpuscular Volume 82, Mean Corpuscular Hemoglobin 26.6L, Mean Corpuscular Hemoglobin Concent 32.5, Red Cell Distribution Width 14.2, Platelet Count 292, Mean Platelet Volume 6.3L, Neutrophils (%) (Auto) 68.3, Lymphocytes (%) (Auto) 23.5, Monocytes (%) (Auto) 5.6, Eosinophils (%) (Auto) 0.0, Basophils (%) (Auto) 2.6H 02/28/20 09:50: Sodium Level 155H, Potassium Level 4.5, Chloride Level 121H, Carbon Dioxide Level 23, Anion Gap 12, Blood Urea Nitrogen 56H, Creatinine 1.4H, Estimat Glomerular Filtration Rate 47.7, Glucose Level 148H, Calcium Level 8.1L 02/28/20 10:45: Arterial Blood pH 7.407, Arterial Blood Partial Pressure CO2 32.9L, Arterial Blood Partial Pressure O2 56.4L, Arterial Blood HCO3 20.2L, Arterial Blood Oxygen Saturation 89.4*L, Arterial Blood Base Excess -3.5L, Home Test Positive Height (Feet): 5 Height (Inches): 10.00 Weight (Pounds): 178 Objective In severe respiratory distress. Cyanotic. CV RR Lungs B ronchi + wheezes Abd SNT BS + E cyanotic. Assessment/Plan Assessment/Plan: ER called to intubate. Code Blue in progress. Covid 19 - per ID Still Hypoxemic Yumi Lam MD Feb 28, 2020 13:37
--- NOTE | 2020-02-28 13:37 | NUR ---
NURSE NOTES: Code blue completed/ROSC at [address] Houston. Patient orally intubated, awaiting for chest xray for ET tube placement.
--- NOTE | 2020-02-28 14:00 | NUR ---
CODE BLUE: See Code sheet which remains on paper. Asystole noted in quality assurance monitor final. CPR and ACLS started.
--- NOTE | 2020-02-28 14:08 | NUR ---
NURSE NOTES: Code blue ended. Dr. Saldivar at bedside. Patient at [address] Saldivar.
--- NOTE | 2020-02-28 14:44 | Emergency Room Report ---
History of Present Illness General Chief Complaint: Dyspnea/Respdistress Source: Medical Record Present Illness Allergies: Coded Allergies: No Known Allergies (Unverified , 02/14/19) COVID-19 Screening Contact w/high risk pt: Yes Experienced COVID-19 symptoms?: Yes COVID-19 Testing performed HHAS: Yes COVID-19 Screening: Positive COVID-19 COVID-19 Testing Source: 02/11/20 Nursing Documentation-[facility] Past Medical History: No History, Except For Hx Hypertension: Yes Physical Exam Vital Signs Date Time Temp Pulse Resp B/P (MAP) Pulse Ox O2 Delivery O2 Flow Rate FiO2 02/24/20 08:00 15.0 100 02/24/20 08:00 85 02/24/20 08:00 Non-Rebreather 02/24/20 08:00 97.2 39 157/88 (111) 91 Procedures Critical Care Time Critical Care Time i. I feel this is a highly complex case requiring extensive working including EKG/Rhythm strip, Xray/CT/US, Blood/urine lab work, repeat exams while in ED, and administration of strong opiates/narcotics for pain control, admission to hospital or close patient follow up. Total time: 30 min bedside evaluation and treatment excludes procedures (EKG). Reason for critical care: respiratory distress Possible complications: hypotension, hypertension, MN, shock, arrhythmias, metabolic acidosis, end organ damage, respiratory failure. Interventions: ACLS medications, chest compressions, cardiac monitoring, intubation Course: Patient presenting with respiratory distress. Moved to ICU. Covid positive. Patient intubated for airway protection. Significant secretions noted. Patient became bradycardic and lost pulse. Asystole. Chest compressions started. Accu-Chek low. Given D50 given. Multiple rounds of epinephrine given. Patient regained pulse. Prognosis poor. Care resumed by admitting team Consultations: nursing staff, EMS, family Performed by: Dr Houston Tolerated well condition = critical j. because of unstable vital signs this patient had a condition that could potentially threaten life or limb. I feel this is a critical patient who required my full attention while patient was considered critical. Total Critical Care Time excluding procedures was greater than 35 minutes CPR/Code Blue CPR/Code Blue Narrative See CODE BLUE sheet for full narrative Intubation Intubation : Consent: Emergent Intubation Method: orotracheal Tube Size (cm): 7.5 Medications: Etomidate Breath Sounds after Intubation: equal Intubation Complications: no complications Post Intubation Xray: No - patient coded and Attempts: One Patient Tolerated: Well Complications: None Medical Decision Making Diagnostic Impression: Primary Impression: COVID-19 Additional Impressions: Respiratory failure Hypoxia KYLIE (acute kidney injury) ER Course I was called to the ICU to evaluate this patient. In respiratory distress. Covid positive. Intubated for airway protection. Patient then coded. Bradycardic then asystolic. Accu-Chek low. Given D50. Multiple rounds of compressions. Epinephrine given. Patient regained pulse. Discussed with admitting physician. Prognosis poor Last Vital Signs Date Time Temp Pulse Resp B/P (MAP) Pulse Ox O2 Delivery O2 Flow Rate FiO2 02/28/20 12:00 Bi-pap 15.0 02/28/20 12:00 100 02/28/20 11:22 95 34 97 02/28/20 11:04 127/87 02/28/20 08:00 97.7 Status: worsened Disposition: Condition: Referrals: Yumi Lam MD (PCP) Reid Houston MD Feb 28, 2020 14:44
--- NOTE | 2020-02-28 15:19 | NUR ---
Wet End SupervisorAnalysis Specialist SI: Respiratory Failure, COVID PNA T-97.7, HR 94, RR 36, BP 138/33 WBC 4.0, BUN 24, Na+ 155, BUN 56, Creatinine 1.4H Cxray Bilateral Infiltrates. BIPAP 22/10 15L FiO2 100% ABG pco2 32.9, Po2 56.4, Hco3 20.2 O2 saturation 89.4 ABG base excess -3.5 IS: Ceftriaxone IV 1 24h Dexamethasone IV QD Lovenox SQ QD ICU status
--- NOTE | 2020-02-28 15:40 | NUR ---
NURSE NOTES: Patient's son/[employer] in the unit. Family doesn't haave mortuary set up at this time. Informed family that body will be kept [facility]. Nursing office telephone number provided to family at this time. Family to call nursing office when they decided of mortuary.
--- NOTE | 2020-02-28 16:19 | Emergency Room Report ---
History of Present Illness General Chief Complaint: Dyspnea/Respdistress Source: Medical Record Present Illness HPI 89-year-old male presents with acute respiratory distress, found to have Covid, also called to bedside because he started coding Allergies: Coded Allergies: No Known Allergies (Unverified , 02/14/19) COVID-19 Screening Contact w/high risk pt: Yes Experienced COVID-19 symptoms?: Yes COVID-19 Testing performed GENOMICS SCIENTIST: Yes COVID-19 Screening: Positive COVID-19 COVID-19 Testing Source: 02/11/20 Patient History Limited by: medical condition - Intubated Past Medical History: see triage record Reviewed Nursing Documentation: PMH: Agreed; PSxH: Agreed Nursing Documentation-PMH Past Medical History: No History, Except For Hx Hypertension: Yes Review of Systems All Other Systems: limited - Intubated Physical Exam Vital Signs Date Time Temp Pulse Resp B/P (MAP) Pulse Ox O2 Delivery O2 Flow Rate FiO2 02/24/20 08:00 15.0 100 02/24/20 08:00 85 02/24/20 08:00 Non-Rebreather 02/24/20 08:00 97.2 39 157/88 (111) 91 Sp02 EP Interpretation: abnormal - hypoxic Eyes: bilateral eye other - Fixed dilated Respiratory: chest symmetrical - To bagging Cardiovascular #1: other - No pulse Procedures Critical Care Time Critical Care Time Given the critical condition in which the patient arrived, the patient was immediately assessed by myself and the nurse, and cardiac monitoring initiated due to the potential for rapid decompensation of the patient's clinical condition. During the course of the patient's stay, I spent a considerable amount of time at the bedside performing serial re-evaluations of the patient's hemodynamic and clinical status because of the recognized potential threat to life or limb in this condition. I then had a chance to review not only all of the available current laboratory and radiographic studies obtained today, but I also reviewed old records available to me at the time. Additionally, any ancillary information available including screwhead polisher records were reviewed. Sequential vital signs were obtained. Critical Care time of 10 minutes was performed exclusive of billable procedures. Medical Decision Making Diagnostic Impression: Primary Impression: COVID-19 Additional Impressions: Respiratory failure Hypoxia KYLIE (acute kidney injury) ER Course 89-year-old male presents in asystole, patient was coded per ACLS algorithm patient received epinephrine Patient was unresponsive Multiple rounds of CPR were conducted time of 1406 Last Vital Signs Date Time Temp Pulse Resp B/P (MAP) Pulse Ox O2 Delivery O2 Flow Rate FiO2 02/28/20 12:00 Bi-pap 15.0 02/28/20 12:00 100 02/28/20 11:22 95 34 97 02/28/20 11:04 127/87 02/28/20 08:00 97.7 Disposition: Condition: Referrals: Yumi Lam MD (PCP) Jerad Saldivar MD Feb 28, 2020 16:19
--- NOTE | 2020-02-29 15:34 | Discharge Summary ---
Discharge Summary Discharge Summary _ SUMMARY DATE OF ADMISSION: 02/22/2020 DATE OF EXPIRATION: REASON FOR ADMISSION: [] 89 years old male with past medical history of hypertension, hypertensive cardiovascular disease, gout, osteoporosis, recurrent UTI, organic brain syndrome, BPH spinal stenosis was brought by portfolio analyst due to hypoxia. After School Program Teacher placed patient on nonrebreather mask patient was a poor historian given his clinical status he was tachycardic and hypoxic chest x-ray revealed bilateral infiltrates versus edema. Cardiomegaly. Rapid COVID-19 was positive. Influenza swab was negative. Laboratory work-up revealed no leukocytosis stable hemoglobin hematocrit and platelet count. BUN thirty-one, creatinine 1.6. Lactic acid 2.6 repeated 1.8. Troponin negative. proBNP five thirty-eight. Ferritin four fifty-two, LDH four forty-four, CRP and D-dimer 2.97. Patient admitted with acute hypoxemic,,. Respiratory failure COVID-19 pneumonia and acute kidney injury with acute hypoxemic CONSULTANTS: pulmonary Dr. Escobar ID specialist Dr. Pancho Jimenezmauro [facility] COURSE: [] Patient admitted to isolation room to stepdown unit.. Patient supplemental oxygen provided and titrated to keep pulse oximetry above 92% pulmonary toilet provided. Java Technical Architect and ID specialist followed. Patient provided with IV steroids. Patient received a dose of ivermectin. Patient was follow-up with a chest x-ray patient placed on the BiPAP however unfortunately ABG and BiPAP show significant hypoxia BiPAP settings were further adjusted. Patient was intubated on for airway protection due to severe respiratory distress Patient transferred to ICU. Ventilator support pulmonary toilet provided. In a few hour patient coded. CODE BLUE was called due to asystolic arrest. ACLS protocol initiated. Unfortunately despite multiple rounds of unfortunately on all resuscitative efforts appeared to be futile. Patient was pronounced fourteen [email or web address] at 02/27- because of this cardiopulmonary arrest FINAL DIAGNOSES: s/p cardiopulmonary arrest Acute hypoxemic respiratory failure, requiring intubation COVID-19 pneumonia Lactic acidosis Acute renal failure Dehydration Malnutrition Hypertensive cardiovascular disease Organic brain syndrome Spinal stenosis Osteoporosis Gout BPH I have been assigned to dictate discharge summary for this account. I was not involved in the patient's management. Tonia Barnard NP Feb 29, 2020 15:34
== END 2020-02-28 14:08 | disposition expired | DRG 177 ==
LOC: EDBD 10:53 → EMR 11:54 → 2W 12:02 → EDBEDREQ 17:40 → ICU 02-28 12:47
PROC: 0BH17EZ Insertion of Endotracheal Airway into Trachea, Via Natural or Artificial Opening (ICD-10-PCS; principal; 2020-02-22)
PROC: 5A09457 Assistance with Respiratory Ventilation, 24-96 Consecutive Hours, Continuous Positive Airway Pressure (ICD-10-PCS; 2020-02-25)
DX: U07.1 COVID-19 (principal); J12.89 Other viral pneumonia; J96.91 Respiratory failure, unspecified with hypoxia; J96.01 Acute respiratory failure with hypoxia; E46 Unspecified protein-calorie malnutrition; N17.9 Acute kidney failure, unspecified; E87.2 Acidosis; Z66 Do not resuscitate; F09 Unspecified mental disorder due to known physiological condition; N40.0 Benign prostatic hyperplasia without lower urinary tract symptoms; M10.9 Gout, unspecified; M81.0 Age-related osteoporosis without current pathological fracture; I11.9 Hypertensive heart disease without heart failure; E86.0 Dehydration; E86.9 Volume depletion, unspecified; D72.810 Lymphocytopenia; M48.061 Spinal stenosis, lumbar region without neurogenic claudication
CPT/HCPCS: 36415; 71045; 80048; 80053; 82550; 82728; 82803; 83605; 83615; 83690; 83735; 83880; 84100; 84484; 85007; 85025; 85379; 85610; 85730; 86140; 86710; 87040; 87081; 92950; 93005; 96365; 96367; 96375; 99291; J0171; U0002